=== PATIENT | female | born 1930 | race Asian ===

== ENCOUNTER 2016-07-22 19:35 | Emergency (ER) | payer MEDICARE ==
[~2016-07-22] VITALS: Ht 160 cm; Wt 68.2 kg
[~2016-07-22 19:35] MED LIST: DYAZIDE 25 MG-31 CAP PO; IMDUR120 MG PO; LIPITOR 80MG80 MG PO; LOPRESSOR 550 MG/TAB PO; NORCO 325 MG-51 TAB PO; PLAVIX 75MG TAB75 MG PO; ZANTAC 150MG T150 MG PO; ZESTRIL 10MG10 MG PO
[2016-07-22 19:48] VITALS: TEMP 97.8
[2016-07-22 21:27] LABS: BASO # 0.1 (0.0-0.2); BASO % 0.9 % (0.0-2.0); EOS # 0.4 (0.0-0.7); EOS % 4.8 % (0-4.0); GRAN # 4.6 (1.4-6.5); GRAN % 56.7 % (42.2-75.2); HEMOGLOBIN 11.1 g/dl (12.5-16.0); LYMPH # 2.5 (1.2-3.4); MEAN CELL VOLUME 100 fl (80.0-100.0); MEAN CORPUSCULAR HEMOGLOBIN 33 pg (27.0-31.0); MEAN CORPUSCULAR HGB CONC 33 g/dl (33.0-37.0); MEAN PLATELET VOLUME 10.4 fl (7.4-10.4); MONO # 0.5 (0.1-0.6); MONO % 6.4 % (1.7-9.3); PLATELET COUNT 236 K/mm3 (130-400); REDCELL DISTRIBUTION WIDTH-CV 13.1 % (11.5-14.5); WHITE BLOOD COUNT 8.1 K/mm3 (4.8-10.8)
[2016-07-22 21:32] LABS: INR 0.9 (0.8-3.0); PROTHROMBIN TIME 10.1 SECONDS (9.7-12.8)
[2016-07-22 21:35] LABS: PARTIAL THROMBOPLASTIN TIME 28.9 SECONDS (26.0-37.0)
[2016-07-22 21:40] LABS: ADJUSTED CALCIUM 9.5 mg/dL (8.4-10.2); ALANINE AMINOTRANSFERASE 23 U/L (9-52); ALBUMIN 3.6 gm/dL (3.5-5.0); ALKALINE PHOSPHATASE 87 U/L (50-136); ANION GAP 10 mmol/L (7-16); BILIRUBIN,TOTAL 0.8 mg/dL (0.0-1.0); BLOOD UREA NITROGEN 31 mg/dL (7-17); CALCIUM 9.2 mg/dL (8.4-10.2); CARBON DIOXIDE 22 mmol/L (22-30); CHLORIDE 107 mmol/L (98-107); CREATININE, serum 1.44 mg/dL (0.52-1.25); GLUCOSE 168 mg/dL (74-106); POTASSIUM 5.2 mmol/L (3.4-5.0); SODIUM 138 mmol/L (137-145); TOTAL PROTEIN 6.8 gm/dL (6.4-8.2)
[2016-07-22 21:42] LABS: C-REACTIVE PROTEIN < 0.5 mg/dL (0.0-0.9)
[2016-07-22 21:46] LABS: ERYTHROCYTE SEDIMENTATION RATE 21 mm/hr (0-30)
[2016-07-22 21:57] LABS: TROPONIN-I < 0.012 ng/mL (0.000-0.034)
[2016-07-22 23:33] VITALS: BP 180/74; PULSE 60
[2016-07-22] MEDS ORDERED: CATAPRES 0.1MG0.1 MG PO (23:40)
[2016-07-22] MEDS ORDERED: ATIVAN 0.50.5 MG/TAB PO (23:40)
== END 2016-07-22 23:58 | disposition home or self-care (01) ==
LOC: COL.ER 19:35
PROVIDERS: Emergency Medicine
DX: I10 Essential (primary) hypertension (principal); R42 Dizziness and giddiness; R00.1 Bradycardia, unspecified; I25.10 Atherosclerotic heart disease of native coronary artery without angina pectoris; Z95.5 Presence of coronary angioplasty implant and graft; Z86.73 Personal history of transient ischemic attack (TIA), and cerebral infarction without residual deficits
CPT/HCPCS: J2060; J2405; J7030

== ENCOUNTER 2016-11-27 06:40 | Day surgery (SDC) | payer MEDICARE ==
[~2016-11-27] VITALS: Ht 157.5 cm; Wt 66.8 kg
[2016-11-27] VITALS (12 sets, daily range): BP systolic 114–153; BP diastolic 53–100; PULSE 60–77; TEMP 98.3
[~2016-11-27 06:40] MED LIST changes: +ATIVAN 0.50.5 MG/TAB PO; +CATAPRES 0.1MG0.1 MG PO
[2016-11-27 07:43] LABS: PROTHROMBIN TIME 10.5 SECONDS (9.7-12.8)
[2016-11-27 07:45] LABS: MEAN CELL VOLUME 98 fl (80.0-100.0); MEAN CORPUSCULAR HGB CONC 34 g/dl (33.0-37.0); MEAN PLATELET VOLUME 10.1 fl (7.4-10.4); PLATELET COUNT 233 K/mm3 (130-400); REDCELL DISTRIBUTION WIDTH-CV 13.4 % (11.5-14.5); WHITE BLOOD COUNT 8.6 K/mm3 (4.8-10.8)
[2016-11-27 07:48] LABS: CALCIUM 9.4 mg/dL (8.4-10.2); CREATININE, serum 1.65 mg/dL (0.52-1.25); POTASSIUM 3.7 mmol/L (3.4-5.0)
[2016-11-27 08:02] LABS: HEMATOCRIT 30.4 % (37.0-47.0); HEMOGLOBIN 10.2 g/dl (12.5-16.0); MEAN CORPUSCULAR HEMOGLOBIN 33 pg (27.0-31.0)
[2016-11-27] MEDS ORDERED: GLUCOTROL 5M5 MG/TAB PO (08:18)
[2016-11-27] MEDS ORDERED: ISOSORBIDE MON120 MG PO (08:18)
[2016-11-27] MEDS ORDERED: NITROSTAT0.4 MG/TAB SL (08:21)
[2016-11-27] MEDS ORDERED: ZYLOPRIM 300MG300 MG PO (08:23)
[2016-11-27] MEDS ORDERED: NORVASC 10MG10 MG PO (08:24)
[2016-11-27] MEDS ORDERED: ASPIRIN 81M81 MG/TA2 PO (15:22)
== END 2016-11-27 15:35 | disposition home or self-care (01) ==
LOC: COL.CAR 06:40
PROVIDERS: Internal Medicine Cardiovascular Disease
DX: I25.10 Atherosclerotic heart disease of native coronary artery without angina pectoris (principal); I08.3 Combined rheumatic disorders of mitral, aortic and tricuspid valves; I10 Essential (primary) hypertension; I73.9 Peripheral vascular disease, unspecified; E78.5 Hyperlipidemia, unspecified; I35.9 Nonrheumatic aortic valve disorder, unspecified; Z95.5 Presence of coronary angioplasty implant and graft; Z95.818 Presence of other cardiac implants and grafts; Z86.73 Personal history of transient ischemic attack (TIA), and cerebral infarction without residual deficits
CPT/HCPCS: A9270-GY; C1894; J2250; J3010; Q9967

== ENCOUNTER 2019-04-30 16:38 | Inpatient (IN) | payer MEDICARE ==
[~2019-04-30] VITALS: Ht 160 cm; Wt 60.9 kg
[~2019-04-30 16:38] MED LIST changes: +ASPIRIN 81M81 MG/TA2 PO; +GLUCOTROL 5M5 MG/TAB PO; +ISOSORBIDE MON120 MG PO; +NITROSTAT0.4 MG/TAB SL; +NORVASC 10MG10 MG PO; +ZYLOPRIM 300MG300 MG PO
[2019-04-30 18:06] VITALS: BP 166/61; PULSE 64; TEMP 98
--- NOTE | 2019-04-30 18:43 | NUR ---
Patient arrived to facility via w/c with at her side. Patient settled and oriented to room/call light with at her side. Questioned patient/ regarding home medication list. Stated that they would bring list in tommorow. Dr. Briceno called and made aware of patient's arrival. Also made Dr. Briceno aware of patients 's statement that he would bring medication list in the AM. New orders recieved. UA cup given to patient for urine specimen. Lab called to make aware of the need for FENA draw
[2019-04-30 19:09] LABS: COLLECTION METHOD CLEAN CATCH
[2019-04-30 19:13] LABS: BASO # 0.1 (0.0-0.2); BASO % 0.9 % (0.0-2.0); EOS # 0.5 (0.0-0.7); EOS % 5.4 % (0-4.0); GRAN # 5.9 (1.4-6.5); GRAN % 61.1 % (42.2-75.2); LYMPH # 2.4 (1.2-3.4); LYMPH % 25.1 % (20.0-51.0); MEAN CELL VOLUME 107 fl (80.0-100.0); MEAN CORPUSCULAR HGB CONC 32 g/dl (33.0-37.0); MEAN PLATELET VOLUME 10.2 fl (7.4-10.4); MONO # 0.7 (0.1-0.6); MONO % 7.1 % (1.7-9.3); PLATELET COUNT 311 K/mm3 (130-400); RED BLOOD COUNT 2.28 M/mm3 (4.10-5.30); REDCELL DISTRIBUTION WIDTH-CV 14.2 % (11.5-14.5)
[2019-04-30 19:17] LABS: INR 0.8 (0.8-3.0); PROTHROMBIN TIME 9.4 SECONDS (9.7-12.8)
[2019-04-30 19:19] LABS: HEMATOCRIT 24.3 % (37.0-47.0); HEMOGLOBIN 7.7 g/dl (12.5-16.0); MEAN CORPUSCULAR HEMOGLOBIN 34 pg (27.0-31.0)
[2019-04-30 19:20] LABS: PARTIAL THROMBOPLASTIN TIME 29.8 SECONDS (26.0-37.0)
[2019-04-30 19:21] LABS: MUCOUS Present /lpf; PH 6 (5-8); SQUAMOUS EPITHELIAL 0-2 /hpf; URINE APPEARANCE Clear; URINE BACTERIA Rare /hpf; URINE BILIRUBIN Negative (NEGATIVE); URINE BLOOD Negative (NEGATIVE); URINE COLOR Yellow; URINE GLUCOSE 2+ (NEGATIVE); URINE KETONE Negative (NEGATIVE); URINE LEUKOCYTE ESTERASE 1+ (NEGATIVE); URINE NITRATE Negative (NEGATIVE); URINE PROTEIN(semi-quant) 2+ (NEGATIVE); URINE RBC 0-2 /hpf; URINE UROBILINOGEN Negative (NEGATIVE)
--- NOTE | 2019-04-30 19:30 | NUR ---
Patient report received from YONY Gore at shift change. Patient is resting comfortably in bed. No IV at this time. Placed Restricted Extremity band on patient's left arm since it is her non dominant hand, per MD order. reports that patient has had all her medications for the day so he will bring her home med list tomorrow. MD aware. No other needs observed at this time.
[2019-04-30 19:37] VITALS: BP 130/51; PULSE 60
[2019-04-30 19:40] LABS: ALBUMIN 3.6 gm/dL (3.5-5.0); BILIRUBIN,TOTAL 0.2 mg/dL (0.0-1.0); CALCIUM 8.6 mg/dL (8.4-10.2); CREATININE, serum 3.82 (0.52-1.25); POTASSIUM 5.5 mmol/L (3.4-5.0); TOTAL PROTEIN 6.6 gm/dL (6.4-8.2)
[2019-04-30 20:13] LABS: CREATININE, serum 3.82 (0.52-1.25); FRACTIONAL EXCRETION OF NA+ 3.9 %
[2019-04-30 21:10] LABS: IRON,SERUM 76 ug/dL (35-150); LACTATE DEHYDROGENASE 533 U/L (313-618)
[2019-04-30 23:45] VITALS: BP 127/51; PULSE 60
[2019-05-01 03:30] VITALS: BP 163/55; PULSE 65
--- NOTE | 2019-05-01 07:07 | NUR ---
Patient report given to YONY Gao at bedside. Patient sitting up on the side of the bed, reading. No needs reported/observed. Patient's will be here around 0730 with her medication list.
--- NOTE | 2019-05-01 08:00 | NUR ---
Assessment complete. Pt sitting up in bed, A&O x 4. Breath sounds CTAB. BS active x 4. Pt denies pain at this time. IVF's infusing per orders through right wrist site without s/s of complications. Pt awaiting 's arrival before taking medications. arrives at this time with current medication list. No further needs reported. Call light in reach.
[2019-05-01 08:23] VITALS: BP 181/61; PULSE 69; TEMP 98
[2019-05-01] MEDS ORDERED: PRINIVIL10 MG PO (09:30)
[2019-05-01] MEDS ORDERED: HYGROTON 2525 MG/TAB PO (09:31)
[2019-05-01] MEDS ORDERED: FOLIC ACID 11 MG/TA1 PO (09:33)
[2019-05-01] MEDS ORDERED: PREVACID 15MG15 M1 PO (09:34)
[2019-05-01] MEDS ORDERED: NITRO-DUR0.1 MG/PAT TD (09:34)
[2019-05-01] MEDS ORDERED: PRINIVIL40 MG PO (09:48)
[2019-05-01 10:51] LABS: URINE PROTEIN:CREAT RATIO 10.63 (0.00-0.14)
[2019-05-01 12:31] VITALS: BP 130/53; PULSE 56; TEMP 97.7
[2019-05-01 16:38] VITALS: BP 161/75; PULSE 71; TEMP 97.8
--- NOTE | 2019-05-01 16:49 | NUR ---
Superintendent Recreation met with patient to discuss discharge plan. Patient lives in [place] with her , Camilo (ph#[phone]). Patient could not remember name of her primary care physician or preferred pharmacy. Patient states she has a walker at home and her assists her when she has to walk long distances. Patient plans to return home upon discharge. VIPIN called Camilo and left a message. SW to continue to follow.
[2019-05-01 18:26] LABS: TRANSFERRIN 161 mg/dL (192-382)
--- NOTE | 2019-05-01 19:25 | NUR ---
Report with YONY Desir. Pt with uneventful shift, denies needs. IVF's continue infusing per orders. Call light in reach.
[2019-05-01 19:33] VITALS: BP 150/53; PULSE 69; TEMP 98.2
--- NOTE | 2019-05-01 20:38 | NUR ---
Patient report received from YONY Gao at bedside during shift change. Upon assessment at this time patient reports having some slight pain to the middle of her chest when she got up to the bathroom. Vitals taken and WNL. Patient reports that the pain subsided when she layed back down. brought in home medication list, Kaity called to obtain orders for home medications not initially ordered. Med Rec updated at this time. Encouraged patient to call for assistance when getting up to bathroom in case she has any more pain to her chest. No other needs reported/observed at this time.
[2019-05-02 00:02] VITALS: BP 171/80; PULSE 77; TEMP 97.7
[2019-05-02 04:45] VITALS: BP 178/66; PULSE 72
[2019-05-02 06:43] LABS: BASO # 0.1 (0.0-0.2); BASO % 0.5 % (0.0-2.0); EOS # 0.4 (0.0-0.7); EOS % 4.6 % (0-4.0); GRAN # 5.6 (1.4-6.5); GRAN % 59.7 % (42.2-75.2); LYMPH # 2.6 (1.2-3.4); LYMPH % 28.1 % (20.0-51.0); MEAN CELL VOLUME 106 fl (80.0-100.0); MEAN CORPUSCULAR HGB CONC 32 g/dl (33.0-37.0); MEAN PLATELET VOLUME 10.1 fl (7.4-10.4); MONO # 0.6 (0.1-0.6); MONO % 6.7 % (1.7-9.3); PLATELET COUNT 262 K/mm3 (130-400); RED BLOOD COUNT 2.09 M/mm3 (4.10-5.30); REDCELL DISTRIBUTION WIDTH-CV 13.9 % (11.5-14.5)
[2019-05-02 06:45] LABS: HEMATOCRIT 22.2 % (37.0-47.0); MEAN CORPUSCULAR HEMOGLOBIN 33 pg (27.0-31.0)
[2019-05-02 06:59] LABS: ALBUMIN 3.2 gm/dL (3.5-5.0); CALCIUM 8.8 mg/dL (8.4-10.2); CREATININE, serum 3.69 (0.52-1.25); PHOSPHOROUS 4.5 mg/dL (2.5-4.5); POTASSIUM 4.8 mmol/L (3.4-5.0)
[2019-05-02 07:03] VITALS: BP 160/60; PULSE 72; TEMP 98
--- NOTE | 2019-05-02 07:20 | NUR ---
Patient report given to YONY Berg at bedside. Blood pressure has decreased after administering apresoline 25 mg PO.
[2019-05-02 08:55] LABS: KAPPA FREE LIGHT CHAIN-SERUM 97.65 mg/L (()); KAPPA LAMBDA RATIO 1.44 ratio (()); LAMDA FREE LIGHT CHAIN SERUM 67.66 mg/L (())
--- NOTE | 2019-05-02 10:06 | NUR ---
Pt awake and alert this morning, some C/O mild pain in her chest area, shift assessments complete, left Pt call light in reach, bed in lowest position.
--- NOTE | 2019-05-02 14:22 | NUR ---
Mine Wedge Sawyer met with patient and patient's to review discharge plan. Patient sees Dr. Garrison for primary care and obtains medications from [facility] in [place]. Patient has a walker at home but she rarely uses it. Patient plans to return home upon discharge.
[2019-05-02 17:01] VITALS: BP 119/47; PULSE 67; TEMP 97.9
--- NOTE | 2019-05-02 18:36 | NUR ---
Pt resting in the room today, no C/O pain, VS have remained stable.
[2019-05-02 19:39] VITALS: BP 157/57; PULSE 66; TEMP 98.6
[2019-05-03] VITALS (10 sets, daily range): BP systolic 128–180; BP diastolic 41–69; PULSE 66–81; TEMP 97.7–99.8
[2019-05-03 06:53] LABS: BASO # 0.1 (0.0-0.2); BASO % 0.7 % (0.0-2.0); EOS # 0.5 (0.0-0.7); EOS % 5.8 % (0-4.0); GRAN # 5.1 (1.4-6.5); GRAN % 58.2 % (42.2-75.2); LYMPH # 2.4 (1.2-3.4); LYMPH % 27.7 % (20.0-51.0); MEAN CELL VOLUME 105 fl (80.0-100.0); MEAN CORPUSCULAR HGB CONC 32 g/dl (33.0-37.0); MEAN PLATELET VOLUME 10.4 fl (7.4-10.4); MONO # 0.6 (0.1-0.6); MONO % 7.4 % (1.7-9.3); PLATELET COUNT 270 K/mm3 (130-400); RED BLOOD COUNT 2.02 M/mm3 (4.10-5.30); REDCELL DISTRIBUTION WIDTH-CV 14.1 % (11.5-14.5)
[2019-05-03 06:59] LABS: HEMATOCRIT 21.1 % (37.0-47.0); MEAN CORPUSCULAR HEMOGLOBIN 34 pg (27.0-31.0)
[2019-05-03 07:00] LABS: HEMOGLOBIN 6.8 g/dl (12.5-16.0)
--- NOTE | 2019-05-03 07:00 | NUR ---
Report rcvd from YONY Berg. Pt is laying in bed reading the bible. Assessment completed. Pt has no complaints. Pt had an uneventful night. Slept well. During morning shift report rcvd a critical value hgb of 6.8. This was relayed to YONY Berg. Otis will be following up with Dr. Briceno regarding possible blood transfusion. Transfer of care to YONY Berg.
[2019-05-03 07:04] LABS: ALBUMIN 3.2 gm/dL (3.5-5.0); CALCIUM 8.7 mg/dL (8.4-10.2); CREATININE, serum 4.11 (0.52-1.25); PHOSPHOROUS 5.1 mg/dL (2.5-4.5); POTASSIUM 4.6 mmol/L (3.4-5.0)
--- NOTE | 2019-05-03 08:39 | NUR ---
Pt awake and alert this morning, no C/O pain, shift assessment complete, left Pt call light in reach, bed in lowest position.
[2019-05-03] MEDS ORDERED: CIPRO 500MG TA500 MG PO (12:47)
--- NOTE | 2019-05-03 18:30 | NUR ---
Pt transfused one unit of LPRC, without issues, second unit started, no C/O pin during the day. Pt rested in the room today is in the room this afternoon, VS have remained stable.
--- NOTE | 2019-05-03 20:55 | NUR ---
Report rcvd from YONY Berg. IVF of 2 unit blood running. Pt vitals are WNL. No c/o pain or discomfort. Pt is ready to discharge home. Physician Kaity contacted, transfusion completed. Final Vitals WNL. Discharge orders complete. IV removed, and pt will be escorted out with . No further concerns.
--- NOTE | 2019-05-03 21:12 | NUR ---
pT LEAVING FLOOR IN WC WITH ALEX PARIS
[2019-05-06 08:13] LABS: A/G RATIO (PEP) 1.13 (()); BETA GLOBULINS (PEP) 0.8 g/dL (0.7-1.2)
== END 2019-05-03 21:12 | disposition home or self-care (01) | DRG 683 ==
LOC: MEDICAL 16:38
PROVIDERS: ADMIT Internal Medicine Nephrology
DX: N17.0 Acute kidney failure with tubular necrosis (principal); N39.0 Urinary tract infection, site not specified; E11.22 Type 2 diabetes mellitus with diabetic chronic kidney disease; I12.9 Hypertensive chronic kidney disease with stage 1 through stage 4 chronic kidney disease, or unspecified chronic kidney disease; N18.3 Chronic kidney disease, stage 3 (moderate); K21.9 Gastro-esophageal reflux disease without esophagitis; E78.5 Hyperlipidemia, unspecified; I25.10 Atherosclerotic heart disease of native coronary artery without angina pectoris; I65.23 Occlusion and stenosis of bilateral carotid arteries; D50.9 Iron deficiency anemia, unspecified; D75.89 Other specified diseases of blood and blood-forming organs; M10.9 Gout, unspecified; E66.9 Obesity, unspecified; Z79.82 Long term (current) use of aspirin; Z95.818 Presence of other cardiac implants and grafts; Z86.73 Personal history of transient ischemic attack (TIA), and cerebral infarction without residual deficits
CPT/HCPCS: A9585; C8902; J1940; J7030; P9016

== ENCOUNTER → 2019-06-03 | Outpatient (CLI) | payer MEDICARE ==
[~2019-06-03] MED LIST changes: +CIPRO 500MG TA500 MG PO; +FOLIC ACID 11 MG/TA1 PO; +HYGROTON 2525 MG/TAB PO; +NITRO-DUR0.1 MG/PAT TD; +NORVASC 5MG5 MG/TAB PO; +PREVACID 15MG15 M1 PO; +PRINIVIL10 MG PO; +PRINIVIL40 MG PO
== END ==
LOC: COL.VAS 11:54
DX: N17.8 Other acute kidney failure (principal)

== ENCOUNTER 2019-07-06 04:43 | Inpatient (IN) | payer MEDICARE, OTHER ==
[~2019-07-06] VITALS: Ht 157.5 cm; Wt 62.2 kg
[2019-07-06 05:33] LABS: BASO # 0.1 (0.0-0.2); BASO % 0.6 % (0.0-2.0); EOS # 0.2 (0.0-0.7); EOS % 2.3 % (0-4.0); GRAN # 8.3 (1.4-6.5); GRAN % 79.4 % (42.2-75.2); LYMPH # 1.5 (1.2-3.4); LYMPH % 13.9 % (20.0-51.0); MEAN CELL VOLUME 100 fl (80.0-100.0); MEAN CORPUSCULAR HGB CONC 33 g/dl (33.0-37.0); MEAN PLATELET VOLUME 10.2 fl (7.4-10.4); MONO # 0.4 (0.1-0.6); MONO % 3.5 % (1.7-9.3); PLATELET COUNT 226 K/mm3 (130-400); REDCELL DISTRIBUTION WIDTH-CV 14.7 % (11.5-14.5)
[2019-07-06 05:34] LABS: HEMATOCRIT 27.1 % (37.0-47.0); HEMOGLOBIN 8.8 g/dl (12.5-16.0); MEAN CORPUSCULAR HEMOGLOBIN 33 pg (27.0-31.0)
[2019-07-06 05:49] LABS: ALANINE AMINOTRANSFERASE 27 U/L (9-52); ALBUMIN 3.5 gm/dL (3.5-5.0); ALKALINE PHOSPHATASE 88 U/L (50-136); ANION GAP 13 mmol/L (7-16); AST,SGOT 39 U/L (15-37); BILIRUBIN,TOTAL 0.3 mg/dL (0.0-1.0); BLOOD UREA NITROGEN 76 mg/dL (7-17); CALCIUM 8.2 mg/dL (8.4-10.2); CARBON DIOXIDE 17 mmol/L (22-30); CHLORIDE 110 mmol/L (98-107); GLUCOSE 57 mg/dL (74-106); LIPASE 376 U/L (23-300); MAGNESIUM 2.8 mg/dL (1.6-2.3); PHOSPHOROUS 5.8 mg/dL (2.5-4.5); POTASSIUM 4.5 mmol/L (3.4-5.0); SODIUM 141 mmol/L (137-145); TOTAL PROTEIN 6.5 gm/dL (6.4-8.2)
[2019-07-06 05:53] LABS: C-REACTIVE PROTEIN < 0.5 mg/dL (0.0-0.9)
[2019-07-06 06:11] LABS: COLLECTION METHOD CATHETER
[2019-07-06 06:20] LABS: PH 5 (5-8); SQUAMOUS EPITHELIAL 0-2 /hpf; URINE APPEARANCE Clear; URINE BACTERIA None Seen /hpf; URINE BILIRUBIN Negative (NEGATIVE); URINE BLOOD Negative (NEGATIVE); URINE COLOR Yellow; URINE GLUCOSE 1+ (NEGATIVE); URINE KETONE Negative (NEGATIVE); URINE LEUKOCYTE ESTERASE Negative (NEGATIVE); URINE NITRATE Negative (NEGATIVE); URINE PROTEIN(semi-quant) 2+ (NEGATIVE); URINE RBC 0-2 /hpf; URINE UROBILINOGEN Negative (NEGATIVE)
[2019-07-06 09:02] VITALS: BP 170/77; PULSE 84; TEMP 97.9
--- NOTE | 2019-07-06 09:15 | NUR ---
Patient to room 357 by cart from ED. with patient. Patient A&Ox3, Persian speaking with little Kyrgyz. VSS 2L NC O2. No reported SOB. IV CDI, fluids infusing. No reported pain or discomfort. Assesment charted. Oriented patient to room, bed and location. No further needs expressed from patient. Patient instructed to call nursing staff for assistance with ambulation. Call light within reach. Bed alarm on
[2019-07-06] MEDS ORDERED: NORVASC 10MG10 MG PO (09:22)
[2019-07-06] MEDS ORDERED: ASPIRIN 81M81 MG/TA2 PO (09:23)
[2019-07-06] MEDS ORDERED: FOLIC ACID 11 MG/TA1 PO (09:25)
[2019-07-06] MEDS ORDERED: PLAVIX 75MG TAB75 MG PO (09:25)
[2019-07-06] MEDS ORDERED: LOPRESSOR 550 MG/TAB PO (09:28)
[2019-07-06 12:26] VITALS: BP 175/64; PULSE 74
[2019-07-06 17:08] VITALS: BP 172/64; PULSE 83; TEMP 98
--- NOTE | 2019-07-06 17:56 | NUR ---
Patient resting in bed, family at the bedside. VSS 2L NC O2. IV CDI, fluids infusing. No reported SOB. Has reported chest pain with ambulation. Doctor notified and pain medication administered. Patient has no appetite, nurse and family encouraging PO intake. Fall precautions in place. Patient instructed to call nursing staff for assistance with ambulation. Call light within reach. Bed alarm on
[2019-07-06 19:19] VITALS: BP 179/68; PULSE 90; TEMP 98.5
--- NOTE | 2019-07-06 20:30 | NUR ---
Pt. sitting in bed with at bedside. Pt. is A&OX3, assessment complete. INT to lt. wrist patent. Pt. denies pain or other needs, call light within reach.
--- NOTE | 2019-07-06 22:00 | NUR ---
Pt. reported having chest pain at 2150. BP checked also, and was elevated. Gave 1 nitro and apresoline at that time. At this time. Pt. reports pain at a 0 on pain scale. Pt. denies further needs, call light within reach.
[2019-07-06 23:06] VITALS: BP 149/65; PULSE 90; TEMP 97.9
[2019-07-07] VITALS (9 sets, daily range): BP systolic 118–165; BP diastolic 50–82; PULSE 77–97; TEMP 97.9–98.9
[2019-07-07 06:33] LABS: BASO # 0.1 (0.0-0.2); BASO % 0.5 % (0.0-2.0); EOS # 0.5 (0.0-0.7); EOS % 3.2 % (0-4.0); GRAN # 10.7 (1.4-6.5); GRAN % 73.4 % (42.2-75.2); LYMPH # 2.4 (1.2-3.4); LYMPH % 16.3 % (20.0-51.0); MEAN CELL VOLUME 102 fl (80.0-100.0); MEAN CORPUSCULAR HGB CONC 32 g/dl (33.0-37.0); MEAN PLATELET VOLUME 10.6 fl (7.4-10.4); MONO # 0.9 (0.1-0.6); MONO % 6.3 % (1.7-9.3); PLATELET COUNT 261 K/mm3 (130-400); RED BLOOD COUNT 2.51 M/mm3 (4.10-5.30); REDCELL DISTRIBUTION WIDTH-CV 14.9 % (11.5-14.5)
[2019-07-07 06:47] LABS: HEMATOCRIT 25.6 % (37.0-47.0); HEMOGLOBIN 8.1 g/dl (12.5-16.0); MEAN CORPUSCULAR HEMOGLOBIN 32 pg (27.0-31.0)
[2019-07-07 06:58] LABS: ALBUMIN 3.2 gm/dL (3.5-5.0); CALCIUM 8.3 mg/dL (8.4-10.2); CREATININE, serum 6.96 (0.52-1.25); PHOSPHOROUS 5.4 mg/dL (2.5-4.5); POTASSIUM 4.7 mmol/L (3.4-5.0)
--- NOTE | 2019-07-07 07:51 | NUR ---
Lying in bed with eyes open. Rating pain in chest 5/10, explains that she has had this pain for the past 10 days. It does come and go with activity. Spouse in room with the patient. Patient has oxygen off at this time and SpO2 85%. Encouraged patient to keep oxygen on and reapplied nasal cannula. SpO2 increases to low 90's. Patient denies needs at this time.
--- NOTE | 2019-07-07 10:53 | NUR ---
Patient at sink in room cleaning up and brushing teeth. Spouse is helping patient perform these tasks and standing beside her. Patient denies needs at this time.
--- NOTE | 2019-07-07 12:02 | NUR ---
Patient uses call light to use bedside commode. Assist to commode. Patient urinates without difficulty. Returns to bed. Denies pain or concerns at this time.
--- NOTE | 2019-07-07 15:01 | NUR ---
Lying in bed with family in room. Having pain in chest. Requests to take Nitro SL at this time. Administered Nitro SL as prescribed.
--- NOTE | 2019-07-07 15:05 | NUR ---
Patient explains that her pain is gone in her chest. Remains lying in bed on left side with eyes open. Family in room with the patient.
--- NOTE | 2019-07-07 15:22 | NUR ---
Dr. Morfin in room to speak with the patient and family regarding placing the tunneled catheter in the morning. Questions answered. Spouse signs consent. Consent placed in chart.
--- NOTE | 2019-07-07 15:39 | NUR ---
Rating pain in chest 5/10 and requests Nitro. Administered as prescribed. Family remains in room with the patient.
--- NOTE | 2019-07-07 15:46 | NUR ---
Patient says that pain is better at this time. Still able to feel a little bit but says it is better. Patient denies need for another Nitro when asked. Remains lying in bed with eyes open. Famiy at bedside. Oxygen on at 3L/NC. Patient denies further needs.
--- NOTE | 2019-07-07 16:25 | NUR ---
Sheep Farm Worker met with patient, patient's Camilo (ph#[phone]), and patient's sister to discuss discharge planning. Patient lives in [place] with her and sees Dr. Garrison for primary care. Patient's picks up medications for patient at [facility] in [place]. Patient has a walker at home but sometimes does not use it. Patient reports she has fallen a couple times recently in her bathroom and may be interested in home health services. Patient is also requiring oxygen at this time but does not have home oxygen set up. SW will continue to monitor. Patient's expressed concerned about finances particularly when it comes to medical bills. VIPIN consulted James Financial Counselor to inquire if patient would qualify for Medicaid as a secondary. James advised he would review patient information and assist with applying. VIPIN spoke with RNKatie about ordering PT/OT. VIPIN will continue to follow to ensure safe discharge.
--- NOTE | 2019-07-07 16:35 | NUR ---
Patient still having some chest pain and questions if she can have another Nitro. Explain that we will need to wait until Dr. Briceno sees her to get his advice on the Nitro and if there is anything else we can do for the pain. Offered pain Tylenol to see if that helps. Patient agrees to take. Return to room and patient is resting in bed on right side with eyes closed. Resp even and unlabored. O2 on at 2L/NC. Awoke patient to take Tylenol. Patient takes and recloses eyes at this time. Family and friends in room with the patient.
--- NOTE | 2019-07-07 19:05 | NUR ---
Received report from Katie. Patient is awake, lying in bed. With O2 at 4lpm via NC. With INT on left wrist. Denies any pain. Instructed patient that she's on NPO by midnight. She states she wants to have a bath tonight. Informed her that an aide will help her.
--- NOTE | 2019-07-07 20:55 | NUR ---
Patient states she's having middle chest pain, with pain score of 7/10. FK=276/50. Nitroglycerine SL PRN given.
--- NOTE | 2019-07-07 21:01 | NUR ---
Patient still have chest pain with pain score of 5/10. BP= 124/50. Nitroglycerine SL PRN given.
--- NOTE | 2019-07-07 21:10 | NUR ---
Patient states she doesn't feel any pain anymore. Shower cap with shampoo done to patient.
[2019-07-08] VITALS (18 sets, daily range): BP systolic 124–160; BP diastolic 51–74; PULSE 81–100; TEMP 97.9–98.7
--- NOTE | 2019-07-08 02:20 | NUR ---
Assisted patient in ambulating to bedside commode. After urinating and going back to bed patient states she felt chest pain with pain score of 5/10. Nitroglycerine SL PRN given. BP= 135/55
--- NOTE | 2019-07-08 04:20 | NUR ---
Assisted patient in urinating in bedside commode. Patient states she feels chest pain of 4/10, this usually happens after she moves.
--- NOTE | 2019-07-08 04:25 | NUR ---
Offered Tylenol to patient for her pain but she states that it lessen already. She verbalized that her pain subsides after she would take a rest. She declines taking Tylenol and wants to observe if the pain would go back again.
--- NOTE | 2019-07-08 06:00 | NUR ---
Assisted patient to the bathroom. Patient states she wants to try to urinate in the bathroom instead of bedside commode. Patient says she's okay and doesn't feel any chest pain. Will endorse to day shift nurse.
[2019-07-08 06:40] LABS: BASO # 0.1 (0.0-0.2); BASO % 0.4 % (0.0-2.0); EOS # 0.1 (0.0-0.7); GRAN # 10.6 (1.4-6.5); GRAN % 78.5 % (42.2-75.2); LYMPH # 1.8 (1.2-3.4); LYMPH % 13.4 % (20.0-51.0); MEAN CELL VOLUME 101 fl (80.0-100.0); MEAN CORPUSCULAR HGB CONC 32 g/dl (33.0-37.0); MONO # 0.9 (0.1-0.6); MONO % 6.3 % (1.7-9.3); PLATELET COUNT 224 K/mm3 (130-400); RED BLOOD COUNT 2.13 M/mm3 (4.10-5.30); REDCELL DISTRIBUTION WIDTH-CV 14.6 % (11.5-14.5)
[2019-07-08 06:47] LABS: HEMATOCRIT 21.6 % (37.0-47.0); MEAN CORPUSCULAR HEMOGLOBIN 33 pg (27.0-31.0)
[2019-07-08 06:48] LABS: ALBUMIN 2.9 gm/dL (3.5-5.0); CALCIUM 8.2 mg/dL (8.4-10.2); CREATININE, serum 6.92 (0.52-1.25)
--- NOTE | 2019-07-08 09:15 | NUR ---
Pt in director geophysical laboratory for TDC insertion. SpO2 noted 85% on 4L/NC. Mask placed at 15L with SpO2 remaining 86%. RT contacted for BiPAP placement by RN. Dr Morfin present. Call by this RN to Dr Briceno and updated regarding situation. Pt also c/o of chest pain throughout admission. Reports pain at this time. Order from Dr Briceno for Lasix 40mg IV at this time. Order read back and verified. Dr Briceno to come to Adjunct Physics Instructor to see pt. SpO2 to 95% with BiPAP now in place.
--- NOTE | 2019-07-08 09:41 | NUR ---
SEE MERGE DOCUMENTATION FOR MEDICATION ADMINISTRATION TIMES AND INTRA/POST PROCEDURE SEDATION ASSESSMENTS.
--- NOTE | 2019-07-08 11:28 | NUR ---
Initial visit; Patient and family thanked Admin Prog Coord for offering comfort and prayer.
--- NOTE | 2019-07-08 13:15 | NUR ---
We have taken patient by bed to room IM 18 for dialysis, family present
--- NOTE | 2019-07-08 19:00 | NUR ---
Received report from Akbar. Seen patient awake, lying on bed. With ongoing 1 unit of PRBC. On O2 at 7lpm via NC with SPO2 at 91%. Patient states she has chest pain after going to the bathroom to urinate. Akbar gave the patient Nitroglycerine SL. Informed patient that we will use bedpan for now whenever she needs to urinate so she we could lessen the occurence of chest pain. With tunneled dialysis catheter on her right chest, covered with gauze and tape. Site is clean, dry and intact.
--- NOTE | 2019-07-08 19:18 | NUR ---
Patient tolerating blood transfusion well, she is still having intermittent chest discomfort with exertion/ Nitro being given, Cardiology and aware of patients condition
--- NOTE | 2019-07-08 19:50 | NUR ---
1st unit of PRBC consumed. Patient tolerated the blood transfusion. Post vital signs recorded. Informed patient there would be another 2nd unit of blood to be transfused.
--- NOTE | 2019-07-08 20:48 | NUR ---
2nd unit of blood started. Verified with YONY Michael. BP. Vital signs before blood transfusion taken. Will monitor patient accordingly.
[2019-07-08 23:39] LABS: HEPATITIS B SURFACE ANTIBODY 2.8 (()); HEPATITIS B SURFACE ANTIGEN Negative (Negative); HEPATITIS C VIRUS ANTIBODY Negative (Negative)
[2019-07-09] VITALS (48 sets, daily range): BP systolic 146–180; BP diastolic 66–91; PULSE 77–115; TEMP 97.2–98.8; O2SAT 90–100
--- NOTE | 2019-07-09 00:17 | NUR ---
2nd unit of PRBC consumed already. Patient tolerated the blood transfusion.
--- NOTE | 2019-07-09 00:45 | NUR ---
Patient complains of having chest pain again. She was sitting on the bed. O2 at 7lpm via NC with SPO2 at 92%. BP= 166/78. Nitroglycerine SL given. Patient states her pain is around 8-9 out of 10.
--- NOTE | 2019-07-09 00:50 | NUR ---
Patient states chest pain was relieved with pain of 4-5 out of 10. Elevated head of bed to 45 degrees. Bed alarm on. Assisted patient to urinate in bedside commode.
[2019-07-09 06:08] LABS: BASO # 0.1 (0.0-0.2); BASO % 0.3 % (0.0-2.0); EOS # 0.1 (0.0-0.7); EOS % 0.3 % (0-4.0); GRAN # 16.2 (1.4-6.5); GRAN % 84.4 % (42.2-75.2); LYMPH # 1.5 (1.2-3.4); LYMPH % 7.9 % (20.0-51.0); MEAN CORPUSCULAR HGB CONC 33 g/dl (33.0-37.0); MEAN PLATELET VOLUME 11.2 fl (7.4-10.4); MONO # 1.3 (0.1-0.6); MONO % 6.6 % (1.7-9.3); PLATELET COUNT 254 K/mm3 (130-400); RED BLOOD COUNT 3.44 M/mm3 (4.10-5.30); REDCELL DISTRIBUTION WIDTH-CV 16.7 % (11.5-14.5)
[2019-07-09 06:19] LABS: HEMATOCRIT 33.1 % (37.0-47.0); MEAN CELL VOLUME 96 fl (80.0-100.0); MEAN CORPUSCULAR HEMOGLOBIN 31 pg (27.0-31.0)
[2019-07-09 06:20] LABS: HEMOGLOBIN 10.8 g/dl (12.5-16.0)
[2019-07-09 06:26] LABS: ALBUMIN 3.5 gm/dL (3.5-5.0); CALCIUM 8.7 mg/dL (8.4-10.2); CREATININE, serum 5.16 (0.52-1.25); PHOSPHOROUS 6.1 mg/dL (2.5-4.5); POTASSIUM 4.4 mmol/L (3.4-5.0)
--- NOTE | 2019-07-09 07:23 | NUR ---
Endorsed patient to Juhi. She still have on and off complains of chest pain, mostly when she ambulates to urinate to the bathroom or bedside commode. SPO2 ranges from 90-95%. On O2 at 7lpm via NC.
--- NOTE | 2019-07-09 08:15 | NUR ---
PATIENT DOWN TO DIALYSIS. TAKEN DOWN BY WC ACCOMPANIED BY THIS NURSE. PATIENT A/O X 4. DENIES C/O PAIN OR DISCOMFORT. DOES REPORT BEING VERY ANXIOUS. STATES "THIS SCARES ME SO MUCH". REASSURANCE PROVED. SHARON BHAKTA DAILYSIS NURSE NOTIFIED. AM MEDICATIONS TO BE GIVEN WHEN BACK FROM DIALYSIS.
--- NOTE | 2019-07-09 08:22 | NUR ---
CALL TO DR JETT. NOTIFIED OF SURGICAL CONSULT FOR CREATION OF NEW DIALYSIS CREATION. NO ORDERS RECEIVED DURING NOTIFICATION
--- NOTE | 2019-07-09 09:18 | NUR ---
PATIENT BACK ON FLOOR FROM DIALYSIS AT THIS TIME. BROUGHT UP IN BED. DIALYSIS TREATMENT NOT COMPLETED DUE TO HYPOTENSION, DROP IN OXYGEN SATURATION, AND EPISODE OF BEING UNRESPONSIVE. CURENTLY AWAKE TALKING TO . SEE FLOW SHEET FOR FVS OBTAINED WITH OXYGEN SATURATIONS 92% ON 8LO2/HFNC. A/O X 4. APPEARS SLEEPY. FALLS ASLEEP WHEN NOT SPOKEN TO. DOES HAVE C/O CHEST PAIN. NITRO PATCH IN PLACE ORDERED
--- NOTE | 2019-07-09 11:06 | NUR ---
VIPIN met with the patient and her , Camilo, to review discharge plan and to discuss post-acute rehab. The patient's attending, Dr. Briceno, asked VIPIN to discuss post-acute rehab and additional support with the patient and family upon discharge. The patient's reports that he would need to discuss post-acute rehab with Dr. Briceno. VIPIN provided the patient with Medicare.gov's list of SNF's in the [facility]. VIPIN to continue to follow.
--- NOTE | 2019-07-09 16:02 | NUR ---
SEE FLOWSHEET FOR VITAL SIGNS OBTAINED. PATIENT C/O SOA AND CHEST PAIN. ANXIOUS AND AGITATED. DR POWERS NOTIFIED ORDERS RECEIVED FOR BIPAP STAT, DILAUDID 1MG IV NOW AND TRANSFER TO ICU. BIPAP PLACED BY RT. REFRIGERATION INSTALLER NOTIFIED OF ICU TRANSFER. ICU 2 BED RECEIVED. FAMILY AT BEDSIDE. DR POWERS DISCUSSING WISHES FOR AGGRESSIVE CARE, AND CODE STATUS WITH AND SON
--- NOTE | 2019-07-09 16:45 | NUR ---
PATIENT TRANSFER TO ICU 2 VIA BED ACCOMPANIED BY THIS NURSE AND RT. BIPAP IN PLACE DURING TRANSFER. PATIENT DROWSY BUT AWAKENS WHEN NAME CALLED. FALLS BACK TO SLEEP WHEN NOT SPOKEN TO. BP 105/50, HR 72, RR 22, SPO2 99% ON BIPAP WITH 100% OXYGEN. SON PRESENT DURING TRANSFER. PERSONAL BELONGINGS SENT WITH PATIENT TO ICU2.
--- NOTE | 2019-07-09 16:50 | NUR ---
Report received from Juhi RN and pt brought down by bed to ICU room 2. Pt moved over to bed with total assist and placed on monitor. Pt currenlty on bipap. Pt wakes to stimuli. No signs of pain. Assessment complete. Dr Briceno and son at bedside to discuss further plan of care. Will continue to follow.
[2019-07-09 17:58] LABS: BASO % 0.1 % (0.0-2.0); EOS % 0.1 % (0-4.0); GRAN # 18.7 (1.4-6.5); GRAN % 89.2 % (42.2-75.2); LYMPH # 1.1 (1.2-3.4); LYMPH % 5.2 % (20.0-51.0); MEAN CELL VOLUME 95 fl (80.0-100.0); MEAN CORPUSCULAR HGB CONC 33 g/dl (33.0-37.0); MEAN PLATELET VOLUME 11.2 fl (7.4-10.4); MONO % 4.8 % (1.7-9.3); PLATELET COUNT 219 K/mm3 (130-400); RED BLOOD COUNT 3.07 M/mm3 (4.10-5.30); REDCELL DISTRIBUTION WIDTH-CV 16.3 % (11.5-14.5)
[2019-07-09 18:15] LABS: TROPONIN-I 4.62 ng/mL (0.000-0.035)
[2019-07-09 18:23] LABS: HEMOGLOBIN 9.7 g/dl (12.5-16.0); MEAN CORPUSCULAR HEMOGLOBIN 32 pg (27.0-31.0)
[2019-07-09 20:35] LABS: ALBUMIN 3.1 gm/dL (3.5-5.0); BILIRUBIN,TOTAL 0.5 mg/dL (0.0-1.0); CALCIUM 8.5 mg/dL (8.4-10.2); CREATININE, serum 5.04 (0.52-1.25); POTASSIUM 4.8 mmol/L (3.4-5.0); TOTAL PROTEIN 5.9 gm/dL (6.4-8.2)
[2019-07-10] VITALS (634 sets, daily range): BP systolic 89–185; BP diastolic 56–107; PULSE 92–109; TEMP 97–98.8; O2SAT 91–100
--- NOTE | 2019-07-10 01:05 | NUR ---
pt not tolerating bipap, placed on airvo at this time. 40L, 70%
[2019-07-10 05:26] LABS: BASO % 0.1 % (0.0-2.0); GRAN # 9.9 (1.4-6.5); GRAN % 90.7 % (42.2-75.2); HEMOGLOBIN 10.2 g/dl (12.5-16.0); LYMPH # 0.8 (1.2-3.4); LYMPH % 6.9 % (20.0-51.0); MEAN CELL VOLUME 94 fl (80.0-100.0); MEAN CORPUSCULAR HEMOGLOBIN 32 pg (27.0-31.0); MEAN CORPUSCULAR HGB CONC 34 g/dl (33.0-37.0); MEAN PLATELET VOLUME 10.9 fl (7.4-10.4); MONO # 0.2 (0.1-0.6); MONO % 1.7 % (1.7-9.3); PLATELET COUNT 229 K/mm3 (130-400); RED BLOOD COUNT 3.21 M/mm3 (4.10-5.30); REDCELL DISTRIBUTION WIDTH-CV 15.9 % (11.5-14.5)
[2019-07-10 05:37] LABS: ALBUMIN 3.3 gm/dL (3.5-5.0); CALCIUM 8.9 mg/dL (8.4-10.2); CREATININE, serum 5.85 (0.52-1.25); PHOSPHOROUS 6.5 mg/dL (2.5-4.5); POTASSIUM 4.6 mmol/L (3.4-5.0)
--- NOTE | 2019-07-10 06:00 | NUR ---
At the beginning of the night, the patient was noted to be fairly drowsy but woke easily to voice. Eventually began picking at the BiPap and taking it off several times despite directions from staff not to do so. This RN asked whether the patient was in pain and the PT replied "yes", Dilaudid was pulled for administration to help treat the pain. Prior to administering, I called the PT's son, Jignesh, so he could speak with her on the phone. Before leaving, Jignesh requested to talk to the PT before giving her more Dilaudid because he stated he was worried it would make her drowsy again and he wouldn't be able to talk to her. Despite giving the Dilaudid to help with the PT's pain and agitation, PT continued to pick and pull at the BiPap. After consulting RT and [facility], the decision was made to switch the PT to the AirVo where she seemed to tolerate it much better than the BiPap and PT rested well for the rest of the evening after this transition.
--- NOTE | 2019-07-10 07:00 | NUR ---
Report given to YONY Alvarado.
--- NOTE | 2019-07-10 10:41 | NUR ---
Met with pt, son, and in room to discuss comfort care. Dr Briceno and Dr Patel also ospoke with pt and family at bedside during this time. FAmily is struggling with issue of loss of and mother. Several times they have indicated desire for comfort care but then question if something else could be done. Their questions have been discussed with them at length by providers. She is going to be in dialysis for a while longer and then family is wanting her to come to the floor for remainder of her care.
--- NOTE | 2019-07-10 15:36 | NUR ---
Pt was seen about 1245 this afternoon and now pt is saying that she wishes to keep fighting and is not ready for comfort care at this time. her son is at bedside and expresses his understanding that her body is getting tired, that her organs are failing but that his mother is not ready to stop more aggressive care at this time. Pt did state this to him in my presence.
[2019-07-11] VITALS (949 sets, daily range): BP systolic 94–156; BP diastolic 54–74; PULSE 70–84; TEMP 97.8–98.8; O2SAT 94–100
[2019-07-11 06:41] LABS: BASO % 0.2 % (0.0-2.0); EOS # 0.2 (0.0-0.7); EOS % 1.6 % (0-4.0); GRAN # 11.4 (1.4-6.5); GRAN % 77.4 % (42.2-75.2); HEMOGLOBIN 10.3 g/dl (12.5-16.0); LYMPH # 1.8 (1.2-3.4); LYMPH % 12.4 % (20.0-51.0); MEAN CELL VOLUME 96 fl (80.0-100.0); MEAN CORPUSCULAR HEMOGLOBIN 31 pg (27.0-31.0); MEAN CORPUSCULAR HGB CONC 33 g/dl (33.0-37.0); MEAN PLATELET VOLUME 11.1 fl (7.4-10.4); MONO # 1.2 (0.1-0.6); MONO % 7.9 % (1.7-9.3); PLATELET COUNT 253 K/mm3 (130-400); REDCELL DISTRIBUTION WIDTH-CV 15.9 % (11.5-14.5)
[2019-07-11 06:45] LABS: HEMATOCRIT 31.6 % (37.0-47.0)
[2019-07-11 06:53] LABS: ALBUMIN 3.1 gm/dL (3.5-5.0); CALCIUM 8.9 mg/dL (8.4-10.2); CREATININE, serum 4.52 (0.52-1.25); PHOSPHOROUS 4.2 mg/dL (2.5-4.5); POTASSIUM 3.9 mmol/L (3.4-5.0)
--- NOTE | 2019-07-11 09:42 | NUR ---
Pt and seen this am. They are anticipating dialysis later today and this was verified with nurse. did ask when she would move upstairs and I reviewed with him that the care she is requiring must be provided in ICU. We were talking of going to the floor when the plan of comfort care was discussed. He nodded head in understanding. Pt and deny needs at this time. Pt reports she is comfortable and again denies needs.
--- NOTE | 2019-07-11 13:02 | NUR ---
[facility] nurse has met with the patient and the patient's family. The family has decided to do dialysis this day and has NOT decided to go comfort measures as of yet. pharmacy services representative will continue to follow.
[2019-07-12] VITALS (698 sets, daily range): BP systolic 116–152; BP diastolic 58–70; PULSE 80–101; TEMP 97.7–99.2; O2SAT 68–100
[2019-07-12 07:12] LABS: BASO % 0.3 % (0.0-2.0); EOS # 0.4 (0.0-0.7); GRAN # 10.9 (1.4-6.5); GRAN % 75.4 % (42.2-75.2); HEMOGLOBIN 10.4 g/dl (12.5-16.0); LYMPH # 1.8 (1.2-3.4); LYMPH % 12.6 % (20.0-51.0); MEAN CELL VOLUME 97 fl (80.0-100.0); MEAN CORPUSCULAR HEMOGLOBIN 32 pg (27.0-31.0); MEAN CORPUSCULAR HGB CONC 33 g/dl (33.0-37.0); MEAN PLATELET VOLUME 10.8 fl (7.4-10.4); MONO # 1.2 (0.1-0.6); MONO % 8.1 % (1.7-9.3); PLATELET COUNT 247 K/mm3 (130-400); RED BLOOD COUNT 3.28 M/mm3 (4.10-5.30); REDCELL DISTRIBUTION WIDTH-CV 15.7 % (11.5-14.5)
[2019-07-12 07:13] LABS: HEMATOCRIT 31.7 % (37.0-47.0)
--- NOTE | 2019-07-12 07:20 | NUR ---
Patient report recieved from YONY Kan. Patient participates. K-pad is adjusted for comfort to lower extremities. INT IV noted without complications. Patient is on room air with adequate saturations. Right chest tunneled HD catheter with dressing CDI. Go to dependent drainage. Care assumed at this time.
[2019-07-12 07:21] LABS: CALCIUM 8.4 mg/dL (8.4-10.2); CREATININE, serum 3.62 (0.52-1.25); PHOSPHOROUS 3.6 mg/dL (2.5-4.5)
--- NOTE | 2019-07-12 10:33 | NUR ---
Dr. Briceno rounds at this time. Orders as entered CPOE. MD holds lengthy discussion with patient and family regarding POC and goals of care. HD as inpatient vs outpatient scenarios dicussed. Complexity of care and prognosis is outlined by provider. Patient and family encouraged to discuss amongst themselves their goals for quality of life given poor overall prognosis. Questions invited, asked and answered by both MD and RN. Care ongoing.
--- NOTE | 2019-07-12 12:37 | NUR ---
Patient transported to dialysis via bed.
--- NOTE | 2019-07-12 14:37 | NUR ---
Report called to YONY Barrett.
--- NOTE | 2019-07-12 18:22 | NUR ---
Patient resting in bed. A&O. Family at the bedside. VSS. IV CDI. Dialysis catheter RT upper chest, CDI. Reporting chest pain 5/10. No pain medication requested. Kpad on legs for comfort. No further needs expressed from patient. Call light within reach. Bed alarm on
[2019-07-13] VITALS (7 sets, daily range): BP systolic 99–129; BP diastolic 48–61; PULSE 73–91; TEMP 98.1–98.7
[2019-07-13 06:37] LABS: BASO # 0.1 (0.0-0.2); BASO % 0.4 % (0.0-2.0); EOS # 0.6 (0.0-0.7); EOS % 3.9 % (0-4.0); GRAN # 9.4 (1.4-6.5); GRAN % 66.9 % (42.2-75.2); HEMOGLOBIN 10.3 g/dl (12.5-16.0); LYMPH # 2.4 (1.2-3.4); LYMPH % 17.3 % (20.0-51.0); MEAN CELL VOLUME 97 fl (80.0-100.0); MEAN CORPUSCULAR HEMOGLOBIN 31 pg (27.0-31.0); MEAN CORPUSCULAR HGB CONC 32 g/dl (33.0-37.0); MEAN PLATELET VOLUME 11.4 fl (7.4-10.4); MONO # 1.5 (0.1-0.6); MONO % 10.6 % (1.7-9.3); PLATELET COUNT 235 K/mm3 (130-400); RED BLOOD COUNT 3.29 M/mm3 (4.10-5.30); REDCELL DISTRIBUTION WIDTH-CV 15.6 % (11.5-14.5)
[2019-07-13 06:41] LABS: HEMATOCRIT 31.9 % (37.0-47.0)
[2019-07-13 06:57] LABS: CALCIUM 8.2 mg/dL (8.4-10.2); CREATININE, serum 2.9 (0.52-1.25); PHOSPHOROUS 3.6 mg/dL (2.5-4.5); POTASSIUM 4.1 mmol/L (3.4-5.0)
--- NOTE | 2019-07-13 09:45 | NUR ---
PATIENT ASSESSMENT COMPLETED. FAMILY AT BEDSIDE. SHE DENIES ANY PAIN AT THIS TIME. NO NEEDS
--- NOTE | 2019-07-13 19:19 | NUR ---
PATIENT RESTING IN BED. WAS AT THE SIDE OF THE BED. SON AT BEDSIDE.
[2019-07-14 04:14] VITALS: BP 140/59; PULSE 79; TEMP 98.7
--- NOTE | 2019-07-14 05:49 | NUR ---
PT DENIES PAIN. NO CHEST PAIN/PRESSURE REPORTED. SON IN ROOM. TELE MONITOR SHOWING SINUS RHYTHM.
[2019-07-14 06:24] LABS: BASO # 0.1 (0.0-0.2); BASO % 0.5 % (0.0-2.0); EOS # 0.6 (0.0-0.7); EOS % 5.1 % (0-4.0); GRAN # 8.3 (1.4-6.5); GRAN % 66.4 % (42.2-75.2); LYMPH % 15.8 % (20.0-51.0); MEAN CELL VOLUME 98 fl (80.0-100.0); MEAN CORPUSCULAR HGB CONC 32 g/dl (33.0-37.0); MEAN PLATELET VOLUME 11.1 fl (7.4-10.4); MONO # 1.4 (0.1-0.6); MONO % 11.1 % (1.7-9.3); PLATELET COUNT 230 K/mm3 (130-400); RED BLOOD COUNT 3.15 M/mm3 (4.10-5.30); REDCELL DISTRIBUTION WIDTH-CV 15.6 % (11.5-14.5)
[2019-07-14 06:27] LABS: HEMATOCRIT 30.8 % (37.0-47.0); HEMOGLOBIN 9.8 g/dl (12.5-16.0); MEAN CORPUSCULAR HEMOGLOBIN 31 pg (27.0-31.0)
[2019-07-14 06:36] LABS: ALBUMIN 2.9 gm/dL (3.5-5.0); CALCIUM 8.1 mg/dL (8.4-10.2); CREATININE, serum 5.03 (0.52-1.25); PHOSPHOROUS 5.4 mg/dL (2.5-4.5); POTASSIUM 4.1 mmol/L (3.4-5.0)
[2019-07-14 07:30] VITALS: BP 116/55; PULSE 85; TEMP 97.8
--- NOTE | 2019-07-14 09:14 | NUR ---
Patient is a/o. denies any pain. gait is unsteady, requires two people to ambulate. Patient state she is more steady and stronger compared to yesterday. Patient when down for dialysis.
[2019-07-14 12:38] VITALS: BP 118/57; PULSE 106; TEMP 98.3
--- NOTE | 2019-07-14 15:07 | NUR ---
SW met with the patient, her , and son to review discharge plan. The patient's family reports that they would like to pursue treatment for the patient. SW discussed post-acute rehab. The patient's son and report that they are interested in SNF. SW provided the patient with Medicare.[employer]'s list of SNF's in the [facility]. The patient's and son chose 1) [facility] 2) [facility]. Patient Choice Form signed by the patient's and he was provided a copy. VIPIN contacted and faxed a referral to both facilities. SW awaiting their screens.
[2019-07-14 16:37] VITALS: BP 129/64; PULSE 101; TEMP 98.3
--- NOTE | 2019-07-14 19:53 | NUR ---
ASSESSMENT COMPLETE. RESTING IN BED. FAMILY AT BEDSIDE. DENIES PAIN/DISCOMFORT. DENIES NEEDS AT THIS TIME.
[2019-07-14 21:28] VITALS: BP 119/41; PULSE 87; TEMP 99.9
[2019-07-15 01:39] VITALS: BP 147/58; PULSE 77; TEMP 98.1
[2019-07-15 04:07] VITALS: BP 142/50; PULSE 75; TEMP 98.4
[2019-07-15 08:09] LABS: BASO % 0.3 % (0.0-2.0); EOS # 0.5 (0.0-0.7); EOS % 4.6 % (0-4.0); GRAN # 7.9 (1.4-6.5); GRAN % 66.7 % (42.2-75.2); LYMPH % 16.7 % (20.0-51.0); MEAN CELL VOLUME 99 fl (80.0-100.0); MEAN CORPUSCULAR HGB CONC 32 g/dl (33.0-37.0); MEAN PLATELET VOLUME 11.1 fl (7.4-10.4); MONO # 1.3 (0.1-0.6); MONO % 10.6 % (1.7-9.3); PLATELET COUNT 225 K/mm3 (130-400); REDCELL DISTRIBUTION WIDTH-CV 15.9 % (11.5-14.5)
[2019-07-15 08:18] LABS: ALBUMIN 2.7 gm/dL (3.5-5.0); CREATININE, serum 3.8 (0.52-1.25); PHOSPHOROUS 4.2 mg/dL (2.5-4.5); POTASSIUM 4.3 mmol/L (3.4-5.0)
[2019-07-15 08:25] LABS: HEMATOCRIT 29.6 % (37.0-47.0); HEMOGLOBIN 9.5 g/dl (12.5-16.0); MEAN CORPUSCULAR HEMOGLOBIN 32 pg (27.0-31.0)
[2019-07-15 08:43] VITALS: BP 125/54; PULSE 79; TEMP 98.1
--- NOTE | 2019-07-15 09:59 | NUR ---
Assessment completed, alert/oriented, vital signs stable, denies any chest pain or discomfort, heart RRR, lungs CTA, in seeing patient now, discontinuing her telemetry per his orders, plans for dialysis 07/16 and possible discharge home after, son sahara at bedside, plan of care disucssed with family by myself and , deny other needs at this time
[2019-07-15 13:05] VITALS: BP 130/53; PULSE 81
--- NOTE | 2019-07-15 13:39 | NUR ---
Isela, at [facility], reports that they are unable to accept the patient. VIPIN to inform the patient's and will fax updates to [facility].
--- NOTE | 2019-07-15 15:55 | NUR ---
Rylee, at [facility], reports that they are unable to accept the patient. SW to inform the patient and her family.
[2019-07-15 17:55] VITALS: BP 139/61; PULSE 74; TEMP 98.1
[2019-07-15 20:04] VITALS: BP 164/63; PULSE 79; TEMP 98.8
--- NOTE | 2019-07-15 20:32 | NUR ---
Resting in bed. Assessment complete. Bases bilaterally dimished. Heart sounds normal. Bowels active x4. Pulses strong throughout. No edema noted. INT right AC leaking when flushed. Attempted x1-unsuccessful will have charge nurse try. Patient denies pain. Repositioned in bed. Denies other needs at this time. Call light in reach.
[2019-07-16] VITALS (7 sets, daily range): BP systolic 137–160; BP diastolic 55–66; PULSE 69–81; TEMP 97.3–99
--- NOTE | 2019-07-16 00:30 | NUR ---
Resting in bed with son at bedside. Denies needs. Call light in reach.
--- NOTE | 2019-07-16 06:32 | NUR ---
Patient had uneventful night. Son remained at bedside throughout night. Denies needs this AM. Call light in reach.
--- NOTE | 2019-07-16 07:30 | NUR ---
PATIENT IS A&O. PATIENT PRIMARILY SPEAKS GREEK, VERY LITTLE MAURITIAN. SON IS AT BEDSIDE AND IS ABLE TO TRANSLATE A LOT OF HER NEEDS. VSS. PATIENT IS IN END STAGE CKD. DIALYSIS IS SCHEDULED THIS AM. RIGHT CHEST PORTCATH INPLACE. RIGHT AC IV TO INT. AM BS 128, NO SSI REQUIRED. GAVE AM MEDS. HEAD TO TOE ASSESSMENT COMPLETE. PATIENT AMBULATING WITH 1 ASSIST FROM BATHROOM. NO OTHER NEEDS. CALL LIGHT IN REACH.
--- NOTE | 2019-07-16 07:30 | NUR ---
Report given to YONY Montero
--- NOTE | 2019-07-16 08:00 | NUR ---
PATIENT GOING DOWN TO DIALYSIS VIA WC.
[2019-07-16 08:50] LABS: BASO # 0.1 (0.0-0.2); BASO % 0.4 % (0.0-2.0); EOS # 0.5 (0.0-0.7); EOS % 4.2 % (0-4.0); GRAN # 8.3 (1.4-6.5); GRAN % 71.8 % (42.2-75.2); LYMPH # 1.5 (1.2-3.4); LYMPH % 12.9 % (20.0-51.0); MEAN CELL VOLUME 100 fl (80.0-100.0); MEAN CORPUSCULAR HGB CONC 32 g/dl (33.0-37.0); MEAN PLATELET VOLUME 10.9 fl (7.4-10.4); MONO # 1.1 (0.1-0.6); MONO % 9.7 % (1.7-9.3); PLATELET COUNT 240 K/mm3 (130-400); RED BLOOD COUNT 2.99 M/mm3 (4.10-5.30); REDCELL DISTRIBUTION WIDTH-CV 15.8 % (11.5-14.5)
[2019-07-16 08:58] LABS: ALBUMIN 2.9 gm/dL (3.5-5.0); CALCIUM 8.3 mg/dL (8.4-10.2); CREATININE, serum 5.41 (0.52-1.25); HEMATOCRIT 29.9 % (37.0-47.0); HEMOGLOBIN 9.6 g/dl (12.5-16.0); MEAN CORPUSCULAR HEMOGLOBIN 32 pg (27.0-31.0); PHOSPHOROUS 5.9 mg/dL (2.5-4.5); POTASSIUM 4.6 mmol/L (3.4-5.0)
--- NOTE | 2019-07-16 16:03 | NUR ---
VIPIN met with the patient's , Camilo, to update on referrals and to discuss a second preference for SNF. The patient's reports that he needs to think about his second preference and speak to his son (Jignesh). He states that they will decide on a second preference vs the patient returning home, if [facility] cannot accept. SW to continue to follow.
--- NOTE | 2019-07-16 19:14 | NUR ---
Report received from YONY Montero
--- NOTE | 2019-07-16 20:50 | NUR ---
Resting in bed with son and at bedside. Assessment complete. Lungs clear. Heart sounds normal. Bowels active x4. Pulses present throughout. Bilateral lower leg edema +1. INT right AC leaking when flushed. Patient difficult IV stick. Will reassess for new IV site. Denies pain. Denies needs at this time. Call light in reach.
--- NOTE | 2019-07-16 21:27 | NUR ---
Spoke with Dr. Pierce to not have IV at this time.
[2019-07-17] VITALS (8 sets, daily range): BP systolic 124–175; BP diastolic 46–63; PULSE 68–85; TEMP 97.6–98.6
--- NOTE | 2019-07-17 00:08 | NUR ---
Resting in bed with son at bedside. Denies needs. Call light in reach.
--- NOTE | 2019-07-17 03:55 | NUR ---
BP 153 systolic on recheck. Given PRN hydralazine for above 150.
--- NOTE | 2019-07-17 06:16 | NUR ---
Patient received x1 dose of hydralazine throughout night. Otherwise uneventful night. Resting in bed this AM . Call light in reach.
--- NOTE | 2019-07-17 07:15 | NUR ---
Report given to YONY Pacheco
--- NOTE | 2019-07-17 08:50 | NUR ---
Assessment complete. Awake, alert and oriented at this time. Patient relaxing in bed about to sit up for breakfast. Son at the bedside at this time. Patient states she feels good this morning. Took meds well. No complaints of pain or discomfort at this time. Patient and son are aware of POC. No IV site at this time, per physician unless otherwise necessary. Fall precautions are in place. No further needs were expressed at this time. Call light is within reach.
--- NOTE | 2019-07-17 11:51 | NUR ---
Jane, [facility] Director, reports that they are unable to accept the patient. SW met with the patient, her , and son to inform and follow up on SNF vs home health. The patient's and son reports that they would like to try for SNF at [facility]. SW contacted and faxed a referral to Telly at [facility]. SW awaiting their screen.
--- NOTE | 2019-07-17 15:21 | NUR ---
Telly, at [facility], reports that they are able to accept the patient for a skilled stay. SW to inform the patient and her family and will continue to follow.
--- NOTE | 2019-07-17 18:27 | NUR ---
Pt had an uneventful day. No pain or discomfort through out day. Stated she had less of an appetite today but was able to eat later on in the day. Son and have been at the bedside all day. Fall precautions are in place. No further needs were expressed at this time. Call light in reach.
--- NOTE | 2019-07-17 21:31 | NUR ---
Resting in bed with son and at bedside. Assessment complete. Lungs diminished throughout. Denies shortness of breath. Heart sounds normal. Bowels active x4. Pulses present throughout. Bilateral lower leg edema +1. No IV access at this time. Denies pain. Denies needs. Call light in reach. Will monitor.
--- NOTE | 2019-07-17 23:49 | NUR ---
Resting in bed with son at bedside. Denies needs. Call light in reach.
[2019-07-18 03:52] VITALS: BP 168/64; PULSE 77; TEMP 98.3
--- NOTE | 2019-07-18 04:18 | NUR ---
Patient blood pressure 168 systolic. Provided with PRN hydralazine. Denies pain. Denies needs at this time. Call light in reach.
[2019-07-18 05:53] VITALS: BP 169/60
--- NOTE | 2019-07-18 06:23 | NUR ---
Patient received x1 dose of hydralazine throughout night. Otherwise uneventful night. Resting in bed this AM. Call light in reach.
--- NOTE | 2019-07-18 06:46 | NUR ---
Report given to YONY Pacheco
[2019-07-18 08:29] LABS: BASO # 0.1 (0.0-0.2); BASO % 0.5 % (0.0-2.0); EOS # 0.3 (0.0-0.7); EOS % 2.6 % (0-4.0); LYMPH # 1.9 (1.2-3.4); LYMPH % 18.1 % (20.0-51.0); MEAN CELL VOLUME 99 fl (80.0-100.0); MEAN CORPUSCULAR HGB CONC 32 g/dl (33.0-37.0); MEAN PLATELET VOLUME 10.5 fl (7.4-10.4); MONO % 10.1 % (1.7-9.3); PLATELET COUNT 260 K/mm3 (130-400); RED BLOOD COUNT 3.11 M/mm3 (4.10-5.30); REDCELL DISTRIBUTION WIDTH-CV 15.7 % (11.5-14.5)
[2019-07-18 08:36] LABS: HEMATOCRIT 30.9 % (37.0-47.0); HEMOGLOBIN 9.8 g/dl (12.5-16.0); MEAN CORPUSCULAR HEMOGLOBIN 32 pg (27.0-31.0)
[2019-07-18 08:39] LABS: CALCIUM 8.4 mg/dL (8.4-10.2); CREATININE, serum 5.31 (0.52-1.25); POTASSIUM 4.8 mmol/L (3.4-5.0)
[2019-07-18] MEDS ORDERED: RANEXA 500MG T500 MG PO (11:15)
[2019-07-18] MEDS ORDERED: APRESOLINE 25MG25 MG PO (11:16)
[2019-07-18] MEDS ORDERED: ISOSORBIDE MON120 MG PO (11:16)
[2019-07-18] MEDS ORDERED: CARDIZEM CD 12120 MG PO (11:18)
[2019-07-18] MEDS ORDERED: PRINIVIL2.5 MG PO (11:21)
[2019-07-18] MEDS ORDERED: TYLENOL 500MG500 MG PO (11:21)
[2019-07-18] MEDS ORDERED: BUMEX2 MG PO (11:22)
[2019-07-18] MEDS ORDERED: GLUCOTROL XL2.5 MG PO (11:26)
[2019-07-18 11:41] VITALS: BP 156/69; PULSE 88; TEMP 98
--- NOTE | 2019-07-18 12:06 | NUR ---
Assessment complete. Pt arrived back from dialysis and is now eating. No complaints of pain at this time. at the bedside. No IV access at this time, OK per Dr. Briceno. 200 ml removed during dialysis today, beer maker Chey stated she tolerated it well. No further needs at this time. Call light in reach.
[2019-07-18 12:58] VITALS: BP 156/69; PULSE 88; TEMP 98
--- NOTE | 2019-07-18 13:13 | NUR ---
The patient is to discharge today, 07/18, to [facility] for a skilled stay. Transportation was scheduled at 1330, via [facility]. VIPIN informed the patient, her , and RN. They were all in agreeance to the time. SW also presented and explained the IM form to the patient's . The patient's verbalized understanding, signed, and he was provided a copy. No additional needs at this time.
== END 2019-07-18 14:28 | DRG 698 ==
LOC: COL.ER 04:43 → MEDICAL 07:32 → ICU 07-09 16:38 → IMCU 07-10 08:45 → ICU 07-10 08:45 → MEDICAL 07-12 14:44
PROVIDERS: Internal Medicine Nephrology; ADMIT Emergency Medicine
PROC: 5A1D70Z Performance of Urinary Filtration, Intermittent, Less than 6 Hours Per Day (ICD-10-PCS; principal; 2019-07-08)
PROC: 0JH63XZ Insertion of Tunneled Vascular Access Device into Chest Subcutaneous Tissue and Fascia, Percutaneous Approach (ICD-10-PCS; 2019-07-08)
PROC: 02H633Z Insertion of Infusion Device into Right Atrium, Percutaneous Approach (ICD-10-PCS; 2019-07-08)
DX: E11.22 Type 2 diabetes mellitus with diabetic chronic kidney disease (principal); J96.01 Acute respiratory failure with hypoxia; I13.2 Hypertensive heart and chronic kidney disease with heart failure and with stage 5 chronic kidney disease, or end stage renal disease; N18.6 End stage renal disease; N17.9 Acute kidney failure, unspecified; I08.0 Rheumatic disorders of both mitral and aortic valves; E11.649 Type 2 diabetes mellitus with hypoglycemia without coma; I65.23 Occlusion and stenosis of bilateral carotid arteries; Z66 Do not resuscitate; I95.3 Hypotension of hemodialysis; I25.119 Atherosclerotic heart disease of native coronary artery with unspecified angina pectoris; I50.9 Heart failure, unspecified; R00.1 Bradycardia, unspecified; K21.9 Gastro-esophageal reflux disease without esophagitis; E66.9 Obesity, unspecified; D63.1 Anemia in chronic kidney disease; E78.5 Hyperlipidemia, unspecified; M10.9 Gout, unspecified; Z95.5 Presence of coronary angioplasty implant and graft; Z79.82 Long term (current) use of aspirin; Z79.02 Long term (current) use of antithrombotics/antiplatelets; Z86.73 Personal history of transient ischemic attack (TIA), and cerebral infarction without residual deficits
CPT/HCPCS: A4216; J0360; J0690; J0696; J1170; J1200; J1644; J1815; J1940; J2250; J2930; J2997; J3010; J7030; J7042; J7131; P9016; Q5105; Q5106

== ENCOUNTER → 2019-09-09 | Outpatient (CLI) | payer MEDICARE ==
[~2019-09-09] MED LIST changes: +APRESOLINE 25MG25 MG PO; +BUMEX2 MG PO; +CARDIZEM CD 12120 MG PO; +GLUCOTROL XL2.5 MG PO; +PRINIVIL2.5 MG PO; +RANEXA 500MG T500 MG PO; +TYLENOL 500MG500 MG PO
== END ==
LOC: ZCOL.LAB 17:50
DX: Z11.59 Encounter for screening for other viral diseases (principal); N18.6 End stage renal disease

== ENCOUNTER → 2019-10-16 | Outpatient (CLI) | payer MEDICARE, MEDICAID ==
[~2019-10-16] MED LIST changes: +NOVOLOG 100U100 U/M1 SQ; +REGLAN 5MG T5 MG/TAB PO
== END ==
LOC: COL.RAD 16:09
DX: G31.9 Degenerative disease of nervous system, unspecified (principal); I67.82 Cerebral ischemia

== ENCOUNTER 2019-11-07 07:53 | Day surgery (SDC) | payer MEDICARE ==
[~2019-11-07] VITALS: Ht 160 cm; Wt 55.5 kg
[2019-11-07] MEDS ORDERED: TYLENOL 500MG500 MG PO (08:46)
[2019-11-07] MEDS ORDERED: LIPITOR 80MG80 MG PO (08:48)
[2019-11-07 08:52] LABS: CALCIUM 8.7 mg/dL (8.4-10.2); CREATININE, serum 3.26 (0.52-1.25); POTASSIUM 4.9 mmol/L (3.4-5.0)
[2019-11-07] MEDS ORDERED: ISOSORBIDE MON120 MG PO (08:53)
[2019-11-07] MEDS ORDERED: NEXIUM 20MG20 MG PO (08:56)
[2019-11-07] MEDS ORDERED: ZYLOPRIM 300MG300 MG PO (08:57)
[2019-11-07 10:02] VITALS: BP 116/50; PULSE 60; TEMP 98
[2019-11-07 10:17] VITALS: BP 99/44; PULSE 58; TEMP 97.4
--- NOTE | 2019-11-07 10:17 | NUR ---
Patient arrives back to SDC alert, denies pain or nausea. Patient monitor applied, vitals stable. Patient's spouse at bedside. Patient has incision on left upper arm that is open with swiftset on top.
[2019-11-07 10:30] VITALS: BP 102/53; PULSE 70
[2019-11-07 10:45] VITALS: BP 127/55; PULSE 66
[2019-11-07 11:00] VITALS: BP 125/54; PULSE 64
--- NOTE | 2019-11-07 11:00 | NUR ---
Patient tolerated food and drink without any nausea, denies pain, vitals stable.
[2019-11-07 11:15] VITALS: BP 118/49; PULSE 67
--- NOTE | 2019-11-07 11:25 | NUR ---
Dismissal instructions gone over with patient and patient's spouse. Both verbalize understanding and all questions answered.
--- NOTE | 2019-11-07 11:40 | NUR ---
Cat discharged to private vehicle via wheelchair to patient enterance. Patient and spouse leave thanking staff for services.
== END 2019-11-07 11:40 | disposition home or self-care (01) ==
LOC: SDCO 07:53
PROVIDERS: Surgery
DX: I13.2 Hypertensive heart and chronic kidney disease with heart failure and with stage 5 chronic kidney disease, or end stage renal disease (principal); I50.9 Heart failure, unspecified; E11.22 Type 2 diabetes mellitus with diabetic chronic kidney disease; N18.6 End stage renal disease; I25.5 Ischemic cardiomyopathy; I82.612 Acute embolism and thrombosis of superficial veins of left upper extremity; I25.10 Atherosclerotic heart disease of native coronary artery without angina pectoris; I73.9 Peripheral vascular disease, unspecified; Z99.2 Dependence on renal dialysis; Z79.4 Long term (current) use of insulin; Z79.84 Long term (current) use of oral hypoglycemic drugs; Z79.899 Other long term (current) drug therapy; Z79.82 Long term (current) use of aspirin
CPT/HCPCS: J0690; J1644; J2704; J7030

== ENCOUNTER 2020-03-27 08:20 | Inpatient (IN) | payer MEDICARE ==
[~2020-03-27] VITALS: Ht 160 cm; Wt 52.3 kg
[~2020-03-27 08:20] MED LIST changes: +NEXIUM 20MG20 MG PO
[2020-03-27 09:23] LABS: ARTERIAL BLD GAS O2 SATURATION 82.2 % (92-100); ARTERIAL BLD GAS TCO2 CT 25.1; ARTERIAL BLOOD GAS BASE EXCESS -1.3 (-2-2); ARTERIAL BLOOD GAS HCO3 23.8 meq/L (22-26); ARTERIAL BLOOD GAS PCO2 41.4 mmHg (35-45); ARTERIAL BLOOD GAS pH 7.38 (7.35-7.45)
[2020-03-27 10:12] LABS: BASO # 0.1 (0.0-0.2); BASO % 0.8 % (0.0-2.0); EOS % 0.4 % (0-4.0); GRAN # 8.2 (1.4-6.5); HEMOGLOBIN 10.2 g/dl (12.5-16.0); LYMPH # 0.9 (1.2-3.4); LYMPH % 9.4 % (20.0-51.0); MEAN CELL VOLUME 111 fl (80.0-100.0); MEAN CORPUSCULAR HEMOGLOBIN 36 pg (27.0-31.0); MEAN CORPUSCULAR HGB CONC 33 g/dl (33.0-37.0); MEAN PLATELET VOLUME 10.1 fl (7.4-10.4); MONO # 0.7 (0.1-0.6); MONO % 7.1 % (1.7-9.3); PLATELET COUNT 307 K/mm3 (130-400); REDCELL DISTRIBUTION WIDTH-CV 13.4 % (11.5-14.5)
[2020-03-27 10:16] LABS: HEMATOCRIT 31.2 % (37.0-47.0)
[2020-03-27 10:22] LABS: ALBUMIN 3.4 gm/dL (3.5-5.0); CALCIUM 8.6 mg/dL (8.4-10.2); CREATININE, serum 3.06 (0.52-1.25); POTASSIUM 4.7 mmol/L (3.4-5.0); TOTAL PROTEIN 6.3 gm/dL (6.4-8.2)
[2020-03-27] MEDS ORDERED: APRESOLINE 25MG25 MG PO (13:08)
[2020-03-27] MEDS ORDERED: PRINIVIL40 MG PO (13:11)
[2020-03-27] MEDS ORDERED: PREVACID 15MG15 M1 PO (13:19)
[2020-03-27 14:02] VITALS: BP 208/85; PULSE 87; TEMP 98.2
--- NOTE | 2020-03-27 14:30 | NUR ---
PATIENT WAS BROUGHT UP TO THE FLOOR FROM THE EMERGENCY ROOM. PATIENT WAS BROUGHT UP BY CART. INTERPRETOR LINE WAS USED TO GAIN SOME INFORMATION. PATIENT IS A PATIENT OF DR. BERNABE. PATIENT SAID THAT SHE DOES NOT CHECK HER BLOOD SUGAR EVERYDAY AND SHE IS NOT DIABETIC. PATIENT HELPS HER TO MOVE AROUND AND SHE DOES NOT AMBULATE BY HERSELF. PATIENT DOES NOT USE OXYGEN AT HOME. PATIENT DOES NOT HAVE ANY HISTORY OF ASTHMA OR COPD. PATIENT DOES NOT WEAR GLASSES. PATIENT DOES NOT FOLLOW ANY SPECIAL DIET AT HOME. PATIENT DOES NOT KNOW HOME MEDICATIONS BUT HER DOES AND IS SUPPOSE TO BRING HER MEDICATIONS UP WHEN HE COMES. PATIENT TOLD HER AND THAT SHE WAS IN THE HOSPITAL. PATIENT WAS UNABLE TO TELL ME THE YEAR AND SAID THE PRESIDENT WAS SVEN. CALL LIGHT IN REACH.
[2020-03-27 16:40] VITALS: BP 195/85
--- NOTE | 2020-03-27 18:07 | NUR ---
EDUCATED TO PATIENT AND THAT IT IS NOT SAFE FOR HIM TO GET HER TO THE BATHROOM WHILE IN THE HOSPITAL. THE PATIENT IS NOT STEADY ON HER FEET AND IS A FALL RISK. EDUCATED THAT IT IS BED THAT SINCE SHE DOSE NOT AMBULATE THAT SHE NEEDS TO USE THE BEDPAN FOR SAFETY BECAUSE THE NURSING STAFF CAN NOT LIFT AND TUG ON THE PATIENT. PATIENT SAID HE TAKES CARE OF HER AT HOME AND THAT SHE ISNT ABLE TO GET TO GOING WHEN ON THE BEDPAN. EDUCATED ABOUT SAFETY TO PATIENT AND . THIS NURSE FELT IF EDUCATION WAS NOT RECIEVED WELL.
[2020-03-27 20:16] LABS: TROPONIN-I 3 HR POST INITIAL 0.045 ng/mL (0.000-0.034)
--- NOTE | 2020-03-27 21:10 | NUR ---
Patient transferred to room from Dialysis. She was accompanied by her . She is on O2 at 2lpm via NC. With INT on her right hand. With dialysis catheter on her right chest. She is alert and oriented. She denies pain. SCD placed on bilateral lower extremities. Call light within reach.
[2020-03-27 21:18] VITALS: BP 165/51; PULSE 70; TEMP 97.5
--- NOTE | 2020-03-27 22:07 | NUR ---
This nurse called Dr. Briceno to relay troponin result.
[2020-03-27 23:56] VITALS: BP 164/51; PULSE 73; TEMP 97.9
[2020-03-28 04:14] VITALS: BP 183/61; PULSE 77; TEMP 98.1
[2020-03-28 06:56] LABS: BASO # 0.1 (0.0-0.2); BASO % 0.6 % (0.0-2.0); EOS # 0.1 (0.0-0.7); EOS % 0.8 % (0-4.0); GRAN # 6.7 (1.4-6.5); GRAN % 72.5 % (42.2-75.2); LYMPH # 1.5 (1.2-3.4); MEAN CELL VOLUME 111 fl (80.0-100.0); MEAN CORPUSCULAR HEMOGLOBIN 37 pg (27.0-31.0); MEAN CORPUSCULAR HGB CONC 33 g/dl (33.0-37.0); MEAN PLATELET VOLUME 10.3 fl (7.4-10.4); MONO # 0.9 (0.1-0.6); MONO % 9.8 % (1.7-9.3); PLATELET COUNT 252 K/mm3 (130-400); RED BLOOD COUNT 2.74 M/mm3 (4.10-5.30); REDCELL DISTRIBUTION WIDTH-CV 13.4 % (11.5-14.5)
[2020-03-28 06:57] LABS: HEMATOCRIT 30.4 % (37.0-47.0)
--- NOTE | 2020-03-28 07:00 | NUR ---
Pt is resting in bed, student nurse Karyna is taking care of the patient today. Assessment completed. Pt will be getting a thoracentesis with Dr. Bishop today. Will continue to monitor through the day. Bed alarm on, call light within reach. No further concerns.
[2020-03-28 07:13] LABS: ALBUMIN 2.9 gm/dL (3.5-5.0); CALCIUM 8.4 mg/dL (8.4-10.2); CREATININE, serum 2.27 (0.52-1.25); POTASSIUM 4.4 mmol/L (3.4-5.0)
[2020-03-28 07:23] LABS: PHOSPHOROUS 4.4 mg/dL (2.5-4.5)
--- NOTE | 2020-03-28 07:49 | NUR ---
Patient had uneventful night. She denies any chest pain and shortness of breath. She is still on O2 at 2lpm via NC. She had a small bowel movement this morning. Endorsed patient to [facility].
[2020-03-28 08:24] VITALS: BP 189/65; PULSE 77; TEMP 98.5
[2020-03-28 11:52] LABS: GLUCOSE,PLEURAL FLUID 109 mg/dL
[2020-03-28 11:56] LABS: TOTAL PROTEIN,PLEURAL FLUID < 2.0 gm/dL
[2020-03-28 12:05] LABS: PLEURAL FLUID RBC 1000 /mm3 (0-0); PLEURAL FLUID WBC 550 /mm3
[2020-03-28 12:25] LABS: PLEURAL FLUID APPEARANCE CLEAR; PLEURAL FLUID COLOR YELLOW
[2020-03-28 13:38] VITALS: BP 116/57; PULSE 80; TEMP 98.7
--- NOTE | 2020-03-28 16:50 | NUR ---
SW attempted intake several times during shift and patient was resting each time and hard to awaken. SW contacted spouse Camilo at [phone]. Patient lives with spouse in [place]. Spouse states that patient utilizes a walker and a wheelchair at home and he assists her with taking showers. PCP is Dr. Garrison. Spouse Camilo is listed as DPOA-HC. Spouse is very hard to understand over the phone and states that he does not know when he will be able to come up to the hospital, but does want spouse to come home if able to medically. SW will continue to follow.
[2020-03-28 17:30] VITALS: BP 134/50; PULSE 79; TEMP 98.7
--- NOTE | 2020-03-28 18:27 | NUR ---
PT HAS HAD AN UNEVENTFUL DAY. PT HAS HAD NO PAIN OR DISCOMFORT FROM THORACENTESIS THIS MORNING. DR. HARDEN WILL RETURN IN THE MORNING (03/29/20) TO DO A LEFT SIDE THORACENTESIS. PT'S HAS BEEN AT BEDSIDE SINCE EARLY AFTERNOON. NO FURTHER CONCERNS, WILL REPORT TO BLADE BENDER FURNACE TENDER RN.
[2020-03-28 19:58] VITALS: BP 145/57; PULSE 79; TEMP 98.4
--- NOTE | 2020-03-28 22:10 | NUR ---
Pt assessment completed and documented. Pt resting in bed at this time trying to sleep. Alert and oriented x4. Denies pain. INT to right hand CDI. Dialysis cath to right chest CDI. Pt denies any needs/concerns. Call light within reach. Will continue to monitor
[2020-03-28 23:40] VITALS: BP 162/74; PULSE 73; TEMP 97.7
[2020-03-29] VITALS (8 sets, daily range): BP systolic 156–182; BP diastolic 50–66; PULSE 62–74; TEMP 97.9–98.7
--- NOTE | 2020-03-29 06:33 | NUR ---
Pt rested well overnight. No reports of pain. Currently resting in bed. Denies any needs/concerns. Bed alarm on. Call light within reach
[2020-03-29 06:46] LABS: BASO % 0.4 % (0.0-2.0); EOS # 0.2 (0.0-0.7); EOS % 2.4 % (0-4.0); GRAN # 4.3 (1.4-6.5); GRAN % 62.2 % (42.2-75.2); HEMATOCRIT 29.7 % (37.0-47.0); HEMOGLOBIN 9.9 g/dl (12.5-16.0); LYMPH # 1.7 (1.2-3.4); LYMPH % 23.7 % (20.0-51.0); MEAN CELL VOLUME 111 fl (80.0-100.0); MEAN CORPUSCULAR HEMOGLOBIN 37 pg (27.0-31.0); MEAN CORPUSCULAR HGB CONC 33 g/dl (33.0-37.0); MEAN PLATELET VOLUME 10.3 fl (7.4-10.4); MONO # 0.8 (0.1-0.6); MONO % 10.9 % (1.7-9.3); PLATELET COUNT 245 K/mm3 (130-400); RED BLOOD COUNT 2.68 M/mm3 (4.10-5.30); REDCELL DISTRIBUTION WIDTH-CV 13.2 % (11.5-14.5)
--- NOTE | 2020-03-29 06:50 | NUR ---
appears to be sleeping, bedside shift report received from YONY Pierre
[2020-03-29 07:01] LABS: ALBUMIN 2.8 gm/dL (3.5-5.0); CALCIUM 7.9 mg/dL (8.4-10.2); CREATININE, serum 3.15 (0.52-1.25); PHOSPHOROUS 4.6 mg/dL (2.5-4.5); POTASSIUM 4.5 mmol/L (3.4-5.0)
--- NOTE | 2020-03-29 07:24 | NUR ---
Report given to YONY Germain.
--- NOTE | 2020-03-29 07:50 | NUR ---
resting in bed, full assessment completed, see interventions for further info
--- NOTE | 2020-03-29 09:30 | NUR ---
sitting up on side of bed, Dr Bishop in and completed thoracentesis on left side, only removed small amount of fluid and sent for diagnostics
[2020-03-29 11:45] LABS: PLEURAL FLUID RBC 0 /mm3 (0-0); PLEURAL FLUID WBC 176 /mm3
--- NOTE | 2020-03-29 11:45 | NUR ---
resting in bed, at bedside, SBP>160 and medicated with hydrolazine 25mg po
[2020-03-29 11:47] LABS: PLEURAL FLUID APPEARANCE CLEAR; PLEURAL FLUID COLOR YELLOW
[2020-03-29 11:57] LABS: GLUCOSE,PLEURAL FLUID 45 mg/dL
[2020-03-29 12:00] LABS: TOTAL PROTEIN,PLEURAL FLUID < 2.0 gm/dL
--- NOTE | 2020-03-29 13:00 | NUR ---
remains at bedside and is assisting her with eating lunch
--- NOTE | 2020-03-29 13:30 | NUR ---
to dialysis per bed
--- NOTE | 2020-03-29 14:46 | NUR ---
critical care called stating telemetry shows possible a-fib, spoke daphne Mar, dialysis nurse and she was also notified, she notified Dr Briceno and maricel monitoring the patient
[2020-03-29] MEDS ORDERED: CATAPRES 0.1MG0.1 MG PO (17:00)
[2020-03-29] MEDS ORDERED: APRESOLINE 25MG25 MG PO (17:01)
[2020-03-29] MEDS ORDERED: PRINIVIL40 MG PO (17:02)
--- NOTE | 2020-03-29 17:19 | NUR ---
returned from dialysis per bed, at bedside, will assist her with gettng dressed for discharge
--- NOTE | 2020-03-29 17:40 | NUR ---
discharge instructions given to and he verbalizes understanding
--- NOTE | 2020-03-29 17:57 | NUR ---
discharged per WC
== END 2020-03-29 17:58 | disposition home or self-care (01) | DRG 291 ==
LOC: COL.ER 08:20 → MEDICAL 10:41
PROVIDERS: Family Medicine; Internal Medicine Pulmonary Disease; ADMIT Internal Medicine Nephrology
PROC: 5A1D70Z Performance of Urinary Filtration, Intermittent, Less than 6 Hours Per Day (ICD-10-PCS; principal; 2020-03-27)
PROC: 0W993ZZ Drainage of Right Pleural Cavity, Percutaneous Approach (ICD-10-PCS; 2020-03-28)
PROC: 0W9B3ZZ Drainage of Left Pleural Cavity, Percutaneous Approach (ICD-10-PCS; 2020-03-29)
DX: I13.2 Hypertensive heart and chronic kidney disease with heart failure and with stage 5 chronic kidney disease, or end stage renal disease (principal); N18.6 End stage renal disease; E43 Unspecified severe protein-calorie malnutrition; J96.01 Acute respiratory failure with hypoxia; I16.1 Hypertensive emergency; I25.10 Atherosclerotic heart disease of native coronary artery without angina pectoris; E11.22 Type 2 diabetes mellitus with diabetic chronic kidney disease; I50.9 Heart failure, unspecified; K21.9 Gastro-esophageal reflux disease without esophagitis; E78.5 Hyperlipidemia, unspecified; M10.9 Gout, unspecified; D63.1 Anemia in chronic kidney disease; Z79.84 Long term (current) use of oral hypoglycemic drugs
CPT/HCPCS: J1644; J2916; J7030; Q5105

== ENCOUNTER 2020-04-03 01:51 | Observation (INO) | payer MEDICARE ==
[~2020-04-03] VITALS: Ht 160 cm; Wt 51.5 kg
[2020-04-03 02:26] LABS: BASO # 0.1 (0.0-0.2); BASO % 0.8 % (0.0-2.0); EOS # 0.3 (0.0-0.7); EOS % 1.9 % (0-4.0); GRAN # 10.5 (1.4-6.5); HEMOGLOBIN 10.4 g/dl (12.5-16.0); LYMPH # 2.2 (1.2-3.4); LYMPH % 15.6 % (20.0-51.0); MEAN CELL VOLUME 113 fl (80.0-100.0); MEAN CORPUSCULAR HEMOGLOBIN 36 pg (27.0-31.0); MEAN CORPUSCULAR HGB CONC 32 g/dl (33.0-37.0); MEAN PLATELET VOLUME 10.4 fl (7.4-10.4); MONO # 0.7 (0.1-0.6); MONO % 4.9 % (1.7-9.3); PLATELET COUNT 363 K/mm3 (130-400); REDCELL DISTRIBUTION WIDTH-CV 13.3 % (11.5-14.5)
[2020-04-03 02:26] LABS: ARTERIAL BLD GAS O2 SATURATION 91.4 % (92-100); ARTERIAL BLD GAS TCO2 CT 24.4; ARTERIAL BLOOD GAS BASE EXCESS -2.3 (-2-2); ARTERIAL BLOOD GAS HCO3 23.1 meq/L (22-26); ARTERIAL BLOOD GAS PCO2 42.3 mmHg (35-45); ARTERIAL BLOOD GAS PO2 70.4 mmHg (80-100); ARTERIAL BLOOD GAS pH 7.36 (7.35-7.45)
[2020-04-03 02:29] LABS: HEMATOCRIT 32.9 % (37.0-47.0)
[2020-04-03 02:33] LABS: ALBUMIN 3.4 gm/dL (3.5-5.0); BILIRUBIN,TOTAL 0.7 mg/dL (0.0-1.0); CALCIUM 8.3 mg/dL (8.4-10.2); CREATININE, serum 3.12 (0.52-1.25); POTASSIUM 5.3 mmol/L (3.4-5.0); TOTAL PROTEIN 6.3 gm/dL (6.4-8.2)
[2020-04-03 02:45] LABS: TROPONIN-I 0.027 ng/mL (0.000-0.035)
[2020-04-03 05:41] VITALS: BP 179/65; PULSE 80; TEMP 97.9
--- NOTE | 2020-04-03 05:45 | NUR ---
Pt arrived to room 311 at this time from ED. Pt denies pain. INT to left AC CDI with good blood return. Pt denies any needs/concerns. Call light within reach. Bed alarm on. Will continue to monitor.
[2020-04-03 06:34] VITALS: BP 163/52
--- NOTE | 2020-04-03 06:59 | NUR ---
Report given to YONY Pacheco
[2020-04-03 07:39] LABS: INR 0.9 (0.8-3.0); PROTHROMBIN TIME 9.7 SECONDS (9.7-12.8)
[2020-04-03 07:42] LABS: PARTIAL THROMBOPLASTIN TIME 29.2 SECONDS (26.0-37.0)
--- NOTE | 2020-04-03 08:03 | NUR ---
Assessment complete. Patient resting in bed on entry, I informed her that she would be going to dialysis at this time. Patient responded and understood what I said to her but often answers questions incorrectly due to language barrier or misunderstandings. Edema is present in her legs, minimal in her arms as well. Patient transferred to the wheel chair via 2 assist, it is clear that she relies on her to pick her up and move her as she is very limp and does not attempt to move her weight very well. Despite, she was able to make it to and from the wheel chair to sit in dialysis chair. No complaints of pain or discomfort were reported. Physical assessment completed but 5 page and med rec will have to be done later as list from is from january but it is innacurate compared to the most recent list in our system which is from about a week ago. I will speak to Dr. garvey about this when he arrices. Patient is now in dialysis.
--- NOTE | 2020-04-03 11:30 | NUR ---
Patient arrived back from dialysis at this time. is now at the bedside. Verbally I was told by Dr. Briceno that the patient was experiencing a headache as a result of the nitro tab given for her chest pain. When arriving back to the room 5 page assessment was done with the help of her . On assessment patient denied pain, so I asked again specifically related to a headache and she denied having any pain. She also denied chest pain. She is now comfortble in bed, resting with eyes closed. Heparin drip running, next hepxa draw due for 1300. Will continue to monitor. Call light is in reach.
[2020-04-03 12:20] VITALS: BP 145/61; PULSE 76; TEMP 98.3
--- NOTE | 2020-04-03 13:01 | NUR ---
Police Surgeon stopped by but nothing needed at this time. Spouse is kaitara taraka of [facility].
--- NOTE | 2020-04-03 14:08 | NUR ---
Plan to return home with Spouse Aspen Thayer . Alternate contact son Jignesh . Patient sleep during interview with spouse. Spouse reports the pcp as Dr. May with last appointment in February. RX is obtained at [facility] in [facility]. Spouse indicates that is where they reside. Spouse reports that patient has a walker, a wheelchair, and a bath chair for dme. Denies having any other DME use. Spouse reports nursing care from [facility]. Spouse unsure on what the patient will need for aafter care. Sw will continue to monitor. Spouse reports that they have use [facility] earlier in the year for care. Not opposed. Will continue to support in DC plan.
[2020-04-03 16:37] VITALS: BP 141/57; PULSE 65; TEMP 98.6
--- NOTE | 2020-04-03 17:15 | NUR ---
Patient has been free of pain since arriving back from dialysis this afternoon. Denies chest pain and headache. Heparin drip has been restarted since being on hold for 2 hours after a critical high of 1.80, redraw came back was 0.21. No issues with drip or bleeding through the day. Patients hisband has been at the bedside all day and is heklpful in communicating with the pt. Code status confirmed with the . Continuing to monitor. Call light is in reach.
--- NOTE | 2020-04-03 19:38 | NUR ---
Received report from Tara. Seen patient awake in bed. Her on the bedside. She's on O2 at 2lpm via NC. With heparin drip at 3.5ml/hr on her left AC. Upon checking on JUL, it was documented that heparin was at 2.5ml/hr. Informed Chistine charge nurse about the incorrect rate. She called stock house worker and said to call [facility] at 2100H to see on what we should do next. Patient has next hepaxa draw at 2145H. Patient denies any chest pain. Call light within reach.
[2020-04-03 20:13] VITALS: BP 168/64; PULSE 69; TEMP 98.5
--- NOTE | 2020-04-03 22:00 | NUR ---
Patient's hepaXa is at 0.15. Increased rate to 1.5ml/hr. New rate now at 5ml/hr. Error in rate in the MAR, it was at 2.5ml/hr wherein it was supposed to be 3.5ml/hr. Change of rate verified with Cleo BHAKTA.
--- NOTE | 2020-04-03 22:18 | NUR ---
Tele nurse called that patient is on AFIB right now. Her heart rate was at 125. Patient denies any chest pain. This nurse called Dr. Briceno to update him about the AFIB and he said to call Dr. Cannon to see what he wants to do.
--- NOTE | 2020-04-03 22:45 | NUR ---
Dr. Cannon called back and informed him regarding AFIB episode. Updated him that right now patient's heart rate was at 73bpm and still on AFIB. He said to monitor the patient and have EKG in the morning.
[2020-04-04] VITALS (14 sets, daily range): BP systolic 128–168; BP diastolic 54–75; PULSE 64–73; TEMP 97.6–98.6
[2020-04-04 04:29] LABS: BASO # 0.1 (0.0-0.2); BASO % 1.1 % (0.0-2.0); EOS # 0.3 (0.0-0.7); EOS % 3.7 % (0-4.0); LYMPH % 28.4 % (20.0-51.0); MEAN CELL VOLUME 109 fl (80.0-100.0); MEAN CORPUSCULAR HGB CONC 33 g/dl (33.0-37.0); MEAN PLATELET VOLUME 10.3 fl (7.4-10.4); MONO # 0.7 (0.1-0.6); MONO % 9.5 % (1.7-9.3); PLATELET COUNT 278 K/mm3 (130-400); RED BLOOD COUNT 2.15 M/mm3 (4.10-5.30); REDCELL DISTRIBUTION WIDTH-CV 13.3 % (11.5-14.5)
[2020-04-04 04:33] LABS: HEMATOCRIT 23.5 % (37.0-47.0); HEMOGLOBIN 7.8 g/dl (12.5-16.0); MEAN CORPUSCULAR HEMOGLOBIN 36 pg (27.0-31.0)
[2020-04-04 04:44] LABS: ALBUMIN 2.5 gm/dL (3.5-5.0); BILIRUBIN,TOTAL 0.6 mg/dL (0.0-1.0); CALCIUM 7.9 mg/dL (8.4-10.2); CREATININE, serum 2.16 (0.52-1.25); POTASSIUM 3.6 mmol/L (3.4-5.0); TOTAL PROTEIN 4.8 gm/dL (6.4-8.2)
--- NOTE | 2020-04-04 06:48 | NUR ---
Patient denies any chest pain. Heart rate has been stable at 70's. She was afebrile. Heparin drip at 5ml/hr.
--- NOTE | 2020-04-04 08:21 | NUR ---
Assessment complete. Patient laying in bed, awake at this time. PAtient was repositioned and sat up for comfort at this time. PAtient denies chest pain, headache or shortness of breath at this time. Patient stated she did not want to eat breakfast right now. Blood pressure was elevated, scheduled BP medications were given, will recheck in an hour to assess need for PRN hydralazine. SCDs were reapplied. Patient states she is now comfortable. Heparin drip continues to infuse IV site is patent, CD&I. No other needs at this time. Call light is in reach. Will continue to monitor.
--- NOTE | 2020-04-04 10:00 | NUR ---
Spoke with about the tropinin levels and asked whether he wanted to draw more troponin levels given they were so high. He stated "Why, if they are high what are we going to do?" I agreed and he said well you can talk to Kaity and order them if you want but I do not see a reason to. This information has been passed on to Dr. Briceno.
--- NOTE | 2020-04-04 15:57 | NUR ---
Blood transfusion initiated. Patient tolerating well at this time. No signs or symtpoms of adverse reaction at this time. Monitoring vitals per protocol. Will continue to monitor.
--- NOTE | 2020-04-04 18:00 | NUR ---
Patient continues to tolerate blood transfusion well. She has been repositioned mutiple times through out the day. States she did go to the bathroom and that her helped her. no complaints of chest pain or discomfort through the day. has been at the bed side most of the day. New IV started in the right forarm in order to be able to keep heparin infusing while blood is transfusing. Continuing to monitor vital per protocol. No other needs at this time. Call light is in reach.
--- NOTE | 2020-04-04 19:01 | NUR ---
Received report from Tara. Seen patient awake in bed. Her on the bedside. Boost patient up in bed. She denies pain. Call light within reach.
--- NOTE | 2020-04-04 19:25 | NUR ---
This nurse called Dr. Briceno if he wants to have repeat H&H tonight post BT and he said to have it done in the morning. He ordered Dulcplax and stool occult. Informed patient regarding new orders.
--- NOTE | 2020-04-04 21:00 | NUR ---
Patient was trying to have a bowel movement but fails. Dulcolax tablet given already. Bath wipes provided to patient. Changed her gown, bedsheets and blankets.
--- NOTE | 2020-04-04 22:30 | NUR ---
Patient states she's having a hard time sleeping. Asked her if she wants to have some sleeping pills and I can call Dr. Briceno but she refused. Offered her if it's okay to dim the lights and she agreed. She states she can't sleep because her is not here with her.
[2020-04-05 00:14] VITALS: BP 131/51; PULSE 62; TEMP 97.9
[2020-04-05 04:42] VITALS: BP 174/59; PULSE 62; TEMP 98.2
[2020-04-05 06:22] LABS: BASO # 0.1 (0.0-0.2); BASO % 0.6 % (0.0-2.0); EOS # 0.2 (0.0-0.7); EOS % 2.4 % (0-4.0); GRAN # 5.5 (1.4-6.5); GRAN % 63.6 % (42.2-75.2); LYMPH # 2.1 (1.2-3.4); LYMPH % 23.7 % (20.0-51.0); MEAN CELL VOLUME 105 fl (80.0-100.0); MEAN CORPUSCULAR HGB CONC 34 g/dl (33.0-37.0); MEAN PLATELET VOLUME 10.4 fl (7.4-10.4); MONO # 0.8 (0.1-0.6); MONO % 9.2 % (1.7-9.3); PLATELET COUNT 274 K/mm3 (130-400); RED BLOOD COUNT 2.81 M/mm3 (4.10-5.30); REDCELL DISTRIBUTION WIDTH-CV 17.1 % (11.5-14.5)
[2020-04-05 06:28] LABS: HEMATOCRIT 29.4 % (37.0-47.0); HEMOGLOBIN 9.9 g/dl (12.5-16.0); MEAN CORPUSCULAR HEMOGLOBIN 35 pg (27.0-31.0)
--- NOTE | 2020-04-05 06:34 | NUR ---
She has been trying to have bowel movement but fails. She wasn't able to sleep. Denies pain. Call light within reach.
[2020-04-05 06:36] LABS: ALBUMIN 2.9 gm/dL (3.5-5.0); BILIRUBIN,TOTAL 0.7 mg/dL (0.0-1.0); CALCIUM 8.4 mg/dL (8.4-10.2); CREATININE, serum 2.98 (0.52-1.25); POTASSIUM 4.1 mmol/L (3.4-5.0); TOTAL PROTEIN 5.5 gm/dL (6.4-8.2)
--- NOTE | 2020-04-05 11:52 | NUR ---
First visit from the news agent. No needs right now.
[2020-04-05 13:30] VITALS: BP 189/60; PULSE 74; TEMP 98.7
[2020-04-05 16:50] VITALS: BP 157/61; PULSE 68; TEMP 98.6
--- NOTE | 2020-04-05 17:09 | NUR ---
Sales Lead Generator collaborated with YONY Johnson about PT/OT for patient. VIPIN contacted Luz Marina at [facility] who advised patient has nursing and was being evaluated by Physical Therapy. VIPIN faxed clinical updates and will continue to follow.
--- NOTE | 2020-04-05 19:48 | NUR ---
patient alert and oriented, denies any pain. Patient had dialysis today. Heparin drip was discontinued at 0955 when patient was going for dialysis. Dr Cannon and Dr Briceno agreed to discontinue Heparin drip. Patient Hep xa at goal thrice. Heparin drip was not restarted after dialysis. Patient remain constipated, gave Dulcolax and prune juice. spouse visited at bedside. Patient resting in bed at this time. patient bp at sbp 189 post dialysis. Gave patient her blood pressure medication, recheck SBP 157. Dr cannon state he is not doing heart cath during thos visit. Spoke with patient spouse about new development. No further concern or question at this time.
[2020-04-05 19:54] VITALS: BP 162/71; PULSE 70; TEMP 97.8
--- NOTE | 2020-04-05 20:00 | NUR ---
Initial shift assessment done- at bedisde- will be leaving soon--pt upset , thinks she is dying tonight--talked with patientv informed all vitals are stable at this time and that sleep will help her to feel better-- repositioned, Dialysis catheter intact to right chest-dressing dry and intact
[2020-04-05 21:50] VITALS: BP 158/66; PULSE 73; TEMP 97.5
[2020-04-06] VITALS (7 sets, daily range): BP systolic 105–127; BP diastolic 42–55; PULSE 50–61; TEMP 97.3–98
--- NOTE | 2020-04-06 05:52 | NUR ---
Quiet night overall, did sleep for most of the shift--was a bit restless around 0300 and was slightly confused- reoriented, and pt did fall back asleep. VSS, afebrile
[2020-04-06 06:40] LABS: BASO # 0.1 (0.0-0.2); BASO % 0.7 % (0.0-2.0); EOS # 0.1 (0.0-0.7); EOS % 1.4 % (0-4.0); GRAN % 69.6 % (42.2-75.2); HEMOGLOBIN 10.1 g/dl (12.5-16.0); LYMPH # 1.6 (1.2-3.4); LYMPH % 18.5 % (20.0-51.0); MEAN CELL VOLUME 106 fl (80.0-100.0); MEAN CORPUSCULAR HEMOGLOBIN 35 pg (27.0-31.0); MEAN CORPUSCULAR HGB CONC 33 g/dl (33.0-37.0); MEAN PLATELET VOLUME 10.5 fl (7.4-10.4); MONO # 0.8 (0.1-0.6); MONO % 9.3 % (1.7-9.3); PLATELET COUNT 264 K/mm3 (130-400); RED BLOOD COUNT 2.92 M/mm3 (4.10-5.30); REDCELL DISTRIBUTION WIDTH-CV 16.9 % (11.5-14.5)
[2020-04-06 06:51] LABS: HEMATOCRIT 30.9 % (37.0-47.0)
[2020-04-06 06:56] LABS: ALBUMIN 2.8 gm/dL (3.5-5.0); BILIRUBIN,TOTAL 0.8 mg/dL (0.0-1.0); CALCIUM 8.3 mg/dL (8.4-10.2); CREATININE, serum 2.1 (0.52-1.25); POTASSIUM 4.2 mmol/L (3.4-5.0); TOTAL PROTEIN 5.3 gm/dL (6.4-8.2)
[2020-04-06] MEDS ORDERED: MULTAQ400 MG PO (11:28)
--- NOTE | 2020-04-06 11:57 | NUR ---
Dr Briceno here to see patient. Dr Avendaño notified of consult.
--- NOTE | 2020-04-06 14:20 | NUR ---
Initially this morning, patient was to be discharged home with [facility]. Per RN, [facility] patient will not discharge as there is concern patient may have had a stroke and will have a work up done. VIPIN contacted Luz Marina at [place] and provided update.
--- NOTE | 2020-04-06 21:39 | NUR ---
Patient was observed at 2134, there was no cardiac activity when auscultated. Time of 2134. Cleo, Charge Nurse verified there was no Cardiac activity. Called KEN Brown to inform her patient . Family choose Bruce's brother home. RN informed greenhouse instructor. Cleo and two other Nurse aide help prepare patient's body.
--- NOTE | 2020-04-07 02:41 | NUR ---
patient awake. resting in bed. call light within reach.
[2020-04-07 03:59] VITALS: BP 143/65; PULSE 68; TEMP 97.6
--- NOTE | 2020-04-07 04:12 | NUR ---
Received patient weight variance alert, 5% weight differencw. 04/05 - 55.3kg, 04/06 - 53.6kg, 04/07 53.5kg. spoke with patient about recheckingn weight. Patient refuse. Patient has not had Bowel movement nor urine output this shift.
--- NOTE | 2020-04-07 05:08 | NUR ---
Patient resting in bed calmly and awake, gave her critical care nurse specialist medication.
[2020-04-07 06:58] LABS: BASO % 0.4 % (0.0-2.0); EOS # 0.1 (0.0-0.7); EOS % 1.3 % (0-4.0); GRAN # 6.2 (1.4-6.5); GRAN % 75.4 % (42.2-75.2); LYMPH # 1.1 (1.2-3.4); LYMPH % 13.8 % (20.0-51.0); MEAN CELL VOLUME 106 fl (80.0-100.0); MEAN CORPUSCULAR HGB CONC 33 g/dl (33.0-37.0); MEAN PLATELET VOLUME 10.6 fl (7.4-10.4); MONO # 0.7 (0.1-0.6); MONO % 8.6 % (1.7-9.3); PLATELET COUNT 264 K/mm3 (130-400); RED BLOOD COUNT 2.77 M/mm3 (4.10-5.30); REDCELL DISTRIBUTION WIDTH-CV 16.6 % (11.5-14.5)
[2020-04-07 07:02] LABS: HEMATOCRIT 29.3 % (37.0-47.0); HEMOGLOBIN 9.6 g/dl (12.5-16.0); MEAN CORPUSCULAR HEMOGLOBIN 35 pg (27.0-31.0)
[2020-04-07 07:12] LABS: ALBUMIN 2.8 gm/dL (3.5-5.0); BILIRUBIN,TOTAL 0.8 mg/dL (0.0-1.0); CALCIUM 8.2 mg/dL (8.4-10.2); CREATININE, serum 3.04 (0.52-1.25); POTASSIUM 4.4 mmol/L (3.4-5.0); TOTAL PROTEIN 5.2 gm/dL (6.4-8.2)
[2020-04-07 07:37] VITALS: BP 155/53; PULSE 61; TEMP 97.5
--- NOTE | 2020-04-07 16:24 | NUR ---
Inspector Bullet Slugs spoke with Jane, [facility] Director who advised an [facility] screen had been placed. Later this afternoon, Dr. Briceno advised he consulted YONY Barrett for a palliative consult after speaking with patient's family.
[2020-04-07 16:42] VITALS: BP 155/56; PULSE 63; TEMP 98.1
--- NOTE | 2020-04-07 18:00 | NUR ---
Patient has been unresponsive most the day. She was able to speak sometimes to her . She is not able to eat very much. She was able to take in liquids but when giving her anything sold or that was chopped up she would not swallow it. Her brought some soup to feed her. He said she was only taking the liquid. No other changes at this time. Dr Briceno has asked that Obi Tellez RN speak with family about options for hospice. Left message with her. Call tania hernandez.
--- NOTE | 2020-04-07 19:09 | NUR ---
Received report from Eve. Seen patient awake in bed. Her on the bedside about to leave already. She is alert but not oriented. She was just mumbling her words. Call light within reach.
[2020-04-07 20:01] VITALS: BP 179/62; PULSE 70; TEMP 98.1
--- NOTE | 2020-04-07 22:10 | NUR ---
Eve endorse that patient was having a hard time swallowing her pills. Tried crushing her pills for tonight and mixed it with water and juice. She was able to drink them.
[2020-04-07 23:38] VITALS: BP 157/86; PULSE 70; TEMP 98.1
[2020-04-08 04:11] VITALS: BP 170/68; PULSE 78; TEMP 98.1
--- NOTE | 2020-04-08 06:39 | NUR ---
Patient wasn't able to sleep. She was looking for her and son, Jignesh. She was asking why they are not here in the hospital. Informed her of the visiting hours. She refused her SCD.
--- NOTE | 2020-04-08 07:03 | NUR ---
Patient lying in bed with eyes open, HOB elevated approx 60 degrees. Patient does look around, does not answer questions, at times will speak out in Arabic. Respirations even and unlabored. No signs or symptoms of discomfort noted. When asked if she needs anything patient shakes head no.
[2020-04-08 07:42] LABS: BILIRUBIN,TOTAL 0.9 mg/dL (0.0-1.0); CALCIUM 8.6 mg/dL (8.4-10.2); CREATININE, serum 1.99 (0.52-1.25); POTASSIUM 4.2 mmol/L (3.4-5.0); TOTAL PROTEIN 5.5 gm/dL (6.4-8.2)
[2020-04-08 07:49] VITALS: BP 197/74; PULSE 81; TEMP 98.7
[2020-04-08 07:53] VITALS: BP 182/72
--- NOTE | 2020-04-08 07:55 | NUR ---
BP 182/72 manually in right arm. Will administer scheduled medications and reassess at later time.
[2020-04-08 09:06] LABS: BASO # 0.1 (0.0-0.2); BASO % 0.5 % (0.0-2.0); EOS # 0.2 (0.0-0.7); EOS % 1.7 % (0-4.0); GRAN # 8.2 (1.4-6.5); GRAN % 77.2 % (42.2-75.2); LYMPH # 1.2 (1.2-3.4); LYMPH % 11.5 % (20.0-51.0); MEAN CELL VOLUME 106 fl (80.0-100.0); MEAN CORPUSCULAR HGB CONC 33 g/dl (33.0-37.0); MEAN PLATELET VOLUME 10.6 fl (7.4-10.4); MONO # 0.9 (0.1-0.6); MONO % 8.7 % (1.7-9.3); PLATELET COUNT 248 K/mm3 (130-400); RED BLOOD COUNT 2.88 M/mm3 (4.10-5.30); REDCELL DISTRIBUTION WIDTH-CV 16.5 % (11.5-14.5)
[2020-04-08 09:30] LABS: HEMATOCRIT 30.4 % (37.0-47.0); HEMOGLOBIN 9.9 g/dl (12.5-16.0); MEAN CORPUSCULAR HEMOGLOBIN 34 pg (27.0-31.0)
[2020-04-08 09:41] VITALS: BP 152/64
--- NOTE | 2020-04-08 09:42 | NUR ---
Spouse in room with the patient assisting patient in eating breakfast. Rosa in room talking with the patient and her . Updated that BP was elevated this a.m. and was reassessing after giving a.m. meds. BP at this time 152/64. Spouse and patient decline further needs at this time.
--- NOTE | 2020-04-08 11:14 | NUR ---
Tara with social sciences research scientist and I spoke with at bedside about hospice services. We reviewed that this was a service for people within the last 6 months of life, to provide comfort and to stop treatments such as dialysis. he requested information on going home with hospice services and we did talk about hospice coming in to check on her daily to once a week based on need. He is a great care provider and plans to continue doing this for his . he reported that today he is not sure that they are ready to stop hospice and he will wait until Dr Briceno tells him to stop dialysis before he pursues hospice for his . Our contact information was provided to the who thanked us for the information and reported that he will think about it.
[2020-04-08 11:50] VITALS: BP 140/57; PULSE 65; TEMP 97.4
--- NOTE | 2020-04-08 12:25 | NUR ---
Dr. Briceno and Nena in room talking with patient and her spouse.
[2020-04-08] MEDS ORDERED: ATIVAN 1MG T1 MG/TAB PO (13:02)
[2020-04-08] MEDS ORDERED: ATROPINE 2 ML2 ML SL (13:02)
[2020-04-08] MEDS ORDERED: ROXANOL 20MG20 MG/ML SL (13:02)
[2020-04-08] MEDS ORDERED: ROBINUL1ML IV (13:02)
[2020-04-08] MEDS ORDERED: TRANSDERM-0.5 MG/21 TD (13:02)
--- NOTE | 2020-04-08 13:04 | NUR ---
Patient lying in bed with eyes open. Spouse at bedside. Denies pain at this time. Scopalamine patch applied as prescribed. Patient and spouse deny further needs at this time.
--- NOTE | 2020-04-08 13:35 | NUR ---
I met with and patient at bedside during Dr Briceno' visit. He reviewed the patient's health status, concerns for future decline and suffering and asked the patient what she would want to do regarding dialysis. She reported that she was ready to stop dialysis and be comfortable. Son Jignesh was called and on the phone during conversation with Dr Briceno. Jignesh reported that he would follow his mother's decision. Ed reviewed with her several times that stopping dialysis would mean the she would be preparing for . Each time she was asked, she replied that she was ready to stop dialysis. did agree to home hospice services and [facility] was selected. They are requesting a hospital bed and oxygen for comfort. Scripts for roxanol and for ativan were written by Dr Briceno and a referral packet was faxed to [facility]. I also spoke with Rajiv from [facility] who reports that they should be able to admit this afternoon with time determined by when equipment can be delivered. Contact information was provided to [facility] for family. Son, Jignesh, has arrived after his visit was approved by Kiersten Peter RN. Support provided to family. Primary nurse Katie, advised of plan, as it is developing. Comfort quilt provided.
--- NOTE | 2020-04-08 14:21 | NUR ---
Patient lying in bed. Son and at bedside. [employer] representative in room talking with spouse. Telemetry discontinued at this time. Patient denies needs.
--- NOTE | 2020-04-08 16:10 | NUR ---
Inspector [employer] collaborated with Nena, Palliative RN who advised after discussion with Dr. Briceno, the patient has decided to stop dialysis and would like to pursue hospice services at home. Patient and family have selected [facility] and referral/orders were faxed to [facility] by Nena. Rajiv with [facility] met with the patient and family then requested a picker / packer time of 1730 so patient would arrive home around 1800. [facility] set up transport with [facility] to picker / packer at 1730 and informed the family of transport time. Patient and family are in agreement. [facility] provided transport time to [employer] and [facility]. No additional needs at this time.
--- NOTE | 2020-04-08 18:00 | NUR ---
Pt discharged home with hospice via [facility]. Pt's taking pt's belongings home.
== END 2020-04-08 18:00 | disposition hospice, home (50) ==
LOC: COL.ER 01:51 → MEDICAL 03:49
PROVIDERS: Emergency Medicine; ADMIT Internal Medicine Nephrology
DX: I21.9 Acute myocardial infarction, unspecified (principal); E11.22 Type 2 diabetes mellitus with diabetic chronic kidney disease; E11.40 Type 2 diabetes mellitus with diabetic neuropathy, unspecified; I13.2 Hypertensive heart and chronic kidney disease with heart failure and with stage 5 chronic kidney disease, or end stage renal disease; I50.9 Heart failure, unspecified; N18.6 End stage renal disease; D63.1 Anemia in chronic kidney disease; I25.119 Atherosclerotic heart disease of native coronary artery with unspecified angina pectoris; Z66 Do not resuscitate; I63.40 Cerebral infarction due to embolism of unspecified cerebral artery; I08.3 Combined rheumatic disorders of mitral, aortic and tricuspid valves; E46 Unspecified protein-calorie malnutrition; M10.9 Gout, unspecified; F80.1 Expressive language disorder; G93.41 Metabolic encephalopathy; K21.9 Gastro-esophageal reflux disease without esophagitis; E78.5 Hyperlipidemia, unspecified; R09.02 Hypoxemia; E66.9 Obesity, unspecified; Z68.21 Body mass index [BMI] 21.0-21.9, adult; Z99.2 Dependence on renal dialysis; Z98.62 Peripheral vascular angioplasty status; Z79.82 Long term (current) use of aspirin; Z79.02 Long term (current) use of antithrombotics/antiplatelets; Z79.899 Other long term (current) drug therapy; D72.829 Elevated white blood cell count, unspecified
CPT/HCPCS: G0378; J1170; J1644; J1650; J7030; P9016; Q5105